=== PATIENT | female | born 1995 | race Caucasian/White ===

== ENCOUNTER 2019-11-30 20:18 | Emergency (ER) | payer SELFPAY ==
--- NOTE | 2019-11-30 21:20 | EDPHYS ---
Physician Documentation [facility] Name: Miranda Sanders Age: 24 yrs Sex: Female : 1995 Arrival Date: 11/30/2019 Time: 20:21 Bed 11 Private MD: ED Physician Luisito Trinidad HPI: 11/29 21:17 This 24 yrs old Female presents to ER via Ambulatory with complaints of Ear jr8 Pain. 21:17 The patient presents with pain. The complaints affect the right ear. Onset: The jr8 symptoms/episode began/occurred acutely, 2 day(s) ago. Modifying factors: The symptoms are alleviated by nothing, the symptoms are aggravated by nothing. Associated signs and symptoms: The patient has no apparent associated signs or symptoms. Severity of symptoms: At their worst the symptoms were moderate in the emergency department the symptoms are unchanged. The patient has not experienced similar symptoms in the past. The patient has not recently seen a physician. 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 - Social history:: Smoking status: Patient denies any tobacco usage or history of. ROS: 21:17 Eyes: Negative for injury, pain, redness, and discharge, Neck: Negative for injury, jr8 pain, and swelling, Cardiovascular: Negative for chest pain, palpitations, and edema, Respiratory: Negative for shortness of breath, cough, wheezing, and pleuritic chest pain, Abdomen/GI: Negative for abdominal pain, nausea, vomiting, diarrhea, and constipation, Back: Negative for injury and pain, MS/Extremity: Negative for injury and deformity, Skin: Negative for injury, rash, and discoloration, Neuro: Negative for headache, weakness, numbness, tingling, and seizure. 21:17 ENT: Positive for ear pain. Exam: 21:17 Head/Face: Normocephalic, atraumatic. Eyes: Pupils equal round and reactive to light, jr8 extra-ocular motions intact. Lids and lashes normal. Conjunctiva and sclera are non-icteric and not injected. Cornea within normal limits. Periorbital areas with no swelling, redness, or edema. Neck: Trachea midline, no thyromegaly or masses palpated, and no cervical lymphadenopathy. Supple, full range of motion without nuchal rigidity, or vertebral point tenderness. No Meningismus. Cardiovascular: Regular rate and rhythm with a normal S1 and S2. No gallops, murmurs, or rubs. Normal PMI, no JVD. No pulse deficits. Respiratory: Lungs have equal breath sounds bilaterally, clear to auscultation and percussion. No rales, rhonchi or wheezes noted. No increased work of breathing, no retractions or nasal flaring. Skin: Warm, dry with normal turgor. Normal color with no rashes, no lesions, and no evidence of cellulitis. Neuro: Awake and alert, GCS 15, oriented to person, place, time, and situation. Cranial nerves II-XII grossly intact. Motor strength 5/5 in all extremities. Sensory grossly intact. Cerebellar exam normal. Normal gait. 21:17 ENT: External ear(s): are unremarkable, Ear canal(s): are normal, TM's: bulging, on the right, dullness, on the right, erythema, that is moderate, on the right, Examination of the other ear shows no obvious abnormality, Nose: is normal, Mouth: is normal, Posterior pharynx: is normal. Vital Signs: 20:38 BP 114 / 74; Pulse 99; Resp 16; Temp 98.6; Pulse Ox 100% on R/A; Weight 38.56 kg; iw Height 5 ft. 2 in. (157.48 cm); Pain 5/10; 21:30 BP 112 / 72; Pulse 89; Resp 16; Temp 98.6; Pulse Ox 100% on R/A; sg 20:38 Body Mass Index 15.55 (38.56 kg, 157.48 cm) iw MDM: 21:17 Patient medically screened. jr8 21:17 Data reviewed: vital signs, nurses notes, and as a result, I will discharge patient. jr8 Data interpreted: Pulse oximetry: on room air is 100 %. Interpretation: normal. Counseling: I had a detailed discussion with the patient and/or guardian regarding: the historical points, exam findings, and any diagnostic results supporting the discharge/admit diagnosis, the need for outpatient follow up, a family practitioner, to return to the emergency department if symptoms worsen or persist or if there are any questions or concerns that arise at home. Administered Medications: No medications were administered Disposition: 11/30 00:03 Co-signature as Attending Physician, Luisito Trinidad MD I agree with the assessment and tw4 plan of care. Disposition: 11/30/19 21:18 Discharged to Home. Impression: Acute suppurative otitis media. - Condition is Stable. - Discharge Instructions: Otitis Media, Adult. - Prescriptions for Amoxicillin 875 mg Oral Tablet - take 1 tablet by ORAL route every 12 hours for 10 days; 20 tablet. - Medication Reconciliation Form, Thank You Letter, Antibiotic Education, Prescription Opioid Use form. - Follow up: Private Physician; When: As needed; Reason: Recheck today's complaints, Continuance of care, Re-evaluation by your physician. - Problem is new. - Symptoms are unchanged. Signatures: Virgil Delaney RN RN sg Williams, Irene, RN RN iw Roszak, Josh, PA PA jr8 Luisito Trinidad MD MD tw4 Corrections: (The following items were deleted from the chart) 11/29 21:39 21:18 11/30/2019 21:18 Discharged to Home. Impression: Acute suppurative otitis media. sg Condition is Stable. Forms are Medication Reconciliation Form, Thank You Letter, Antibiotic Education, Prescription Opioid Use. Follow up: Private Physician; When: As needed; Reason: Recheck today's complaints, Continuance of care, Re-evaluation by your physician. Problem is new. Symptoms are unchanged. jr8
--- NOTE | 2019-11-30 21:20 | ER ---
Nurse's Notes [facility] Name: Miranda Sanders Age: 24 yrs Sex: Female : 1995 Arrival Date: 11/30/2019 Time: 20:21 Bed 11 Private MD: Diagnosis: Acute suppurative otitis media Presentation: 11/29 20:38 Chief complaint: Patient states: right ear pain X 3 -4 days. Coronavirus screen: iw Proceed with normal triage. Patient denies a cough. Patient denies shortness of breath or difficulty breathing. Patient denies measured and/or subjective temperature greater than 100.4F prior to today's visit. Patient denies travel on a cruise ship or to a country the [facility] currently lists as an affected area. Patient denies contact with known and/or suspected case of COVID-19. Ebola Screen: Patient negative for fever greater than or equal to 101.5 degrees Fahrenheit, and additional compatible Ebola Virus Disease symptoms Patient denies exposure to infectious person. Patient denies travel to an Ebola-affected area in the 21 days before illness onset. No symptoms or risks identified at this time. Initial Sepsis Screen: Does the patient meet any 2 criteria? No. Patient's initial sepsis screen is negative. Does the patient have a suspected source of infection? No. Patient's initial sepsis screen is negative. Risk Assessment: Do you want to hurt yourself or someone else? Patient reports no desire to harm self or others. Onset of symptoms was November 26, 2019. 20:38 Method Of Arrival: Ambulatory 20:38 Acuity: FIDELIA 4 iw COMPUTING ARCHITECT: 20:40 LMP 11/25/2019 iw Historical: - Allergies: 20:39 No Known Allergies; sg - Home Meds: 20:40 None [Active]; iw - PMHx: 20:40 ptsd; Depression; iw - PSHx: 20:39 None; sg - Immunization history:: Adult Immunizations up to date. - Social history:: Smoking status: Patient denies any tobacco usage or history of. Screenin:00 Abuse screen: Denies threats or abuse. Denies injuries from another. Nutritional sg screening: No deficits noted. Tuberculosis screening: No symptoms or risk factors identified. Never had TB. Fall Risk None identified. Assessment: 21:00 General: Appears in no apparent distress. well groomed, well developed, well nourished, sg Behavior is calm, cooperative, appropriate for age. Pain: Complains of pain in right ear Quality of pain is described as aching, throbbing. Neuro: Level of Consciousness is awake, alert, obeys commands, Oriented to person, place, time, Steam Pan Sponger are equal bilaterally Speech is normal. Cardiovascular: Capillary refill is brisk in bilateral fingers Patient's skin is warm and dry. Chest pain is denied. Respiratory: Airway is patent Respiratory effort is even, unlabored, Respiratory pattern is regular, symmetrical. GI: No signs and/or symptoms were reported involving the gastrointestinal system. : No signs and/or symptoms were reported regarding the genitourinary system. EENT: Reports pain in right ear. Derm: Skin is pink, warm \T\ dry. Musculoskeletal: Circulation, motion, and sensation intact. Range of motion: intact in all extremities. Vital Signs: 20:38 BP 114 / 74; Pulse 99; Resp 16; Temp 98.6; Pulse Ox 100% on R/A; Weight 38.56 kg; iw Height 5 ft. 2 in. (157.48 cm); Pain 5/10; 21:30 BP 112 / 72; Pulse 89; Resp 16; Temp 98.6; Pulse Ox 100% on R/A; sg 20:38 Body Mass Index 15.55 (38.56 kg, 157.48 cm) iw ED Course: 20:21 Patient arrived in ED. cl3 20:39 Triage completed. iw 20:40 Arm band placed on. iw 20:41 Virgil Delaney, RN is Primary Nurse. sg 20:43 Ruben Houston PA is PHCP. jr8 20:43 Luisito Trinidad MD is Attending Physician. jr8 21:00 Patient has correct armband on for positive identification. Bed in low position. Call sg light in reach. Side rails up X2. Pulse ox on. NIBP on. 21:30 No provider procedures requiring assistance completed. Patient did not have IV access sg during this emergency room visit. Administered Medications: No medications were administered Outcome: 21:18 Discharge ordered by . jr8 21:30 Discharged to home ambulatory. sg 21:30 Condition: good 21:30 Discharge instructions given to patient, Instructed on discharge instructions, follow up and referral plans. medication usage, safety practices, Demonstrated understanding of instructions, follow-up care, medications, Prescriptions given X 2. 21:39 Patient left the ED. sg Signatures: Virgil Delaney RN RN sg Williams, Irene, RN RN iw Roszak, Josh, PA PA jr8 Sunita Ritchie cl3
[2019-11-30 21:45] VITALS: BP 114/74; TEMP 98.6; O2SAT 100
== END 2019-11-30 21:39 | disposition home or self-care (01) ==
LOC: ER 20:18
DX: H66.001 Acute suppurative otitis media without spontaneous rupture of ear drum, right ear (principal)
CPT/HCPCS: 99283

== ENCOUNTER 2021-06-22 01:23 | Emergency (ER) | payer OTHER, SELFPAY ==
--- OUTSIDE RECORDS SUMMARY | 2021-06-22 01:28 | XMS REPORT | Continuity of Care Document ---
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 Univers 10:00:00 10:00:00 [id number] ity of [facility] 2020-05-02 2020-05-02 Outpatient R [facility] [id number] Univers 10:00:00 10:00:00 ity of [facility] 2020-05-01 2020-05-01 Outpatient R [facility] [id number] Univers 14:00:00 14:00:00 [id number] ity of [facility] 2020-05-01 2020-05-01 Outpatient R [facility] [id number] Univers 14:00:00 14:00:00 ity of [facility] 2020-04-17 2020-04-17 [facility] [id number] Univers 12:45:00 12:45:00 RADHA ity of [facility] 2020-04-17 2020-04-17 [facility] [id number] Univers 12:45:00 12:45:[address] [facility] 2020-04-10 2020-04-10 [facility] [id number] Univers 09:45:00 09:45:00 RADHA [id number] ity of [facility] 2020-04-10 2020-04-10 [facility] [id number] Univers 09:45:00 09:45:[address] [facility] 2020-04-05 2020-04-05 Outpatient R BISMARK [facility] [id number] Univers 14:15:00 14:15:[address] RADHA [id number] [address]y [facility] 2020-04-05 2020-04-05 Outpatient R BISMARK [facility] [id number] Univers 14:15:00 14:15:[address] [facility] 2020 2020 Outpatient R BISMARK [facility] [id number] Univers 07:45:00 07:45:[address] RADHA [id number] [address]y [facility] 2020-03-29 2020-03-29 Outpatient R CINDICHRIS, [facility] [id number] Univers 13:15:00 13:15:00 MALAIKA [id number] ity o f [facility] 2020-03-29 2020-03-29 Outpatient R AKINANITACHRIS, [facility] [id number] Univers 13:15:00 13:15:00 MALAIKA ity o f [facility] 2019-11-30 2019-11-30 Outpatient R LUIS [facility] [id number] Univers 14:45:00 14:45:00 BOB [id number] ity o f [facility] 2019-11-30 2019-11-30 Outpatient R LUIS [facility] [id number] Univers 14:45:00 14:45:00 BOB ity o f [facility] 2019-11-10 2019-11-10 Outpatient R [facility] [id number] Univers 08:00:00 08:00:[id number] [facility] 2019-11-10 2019-11-10 Outpatient R [facility] [id number] Univers 08:00:00 08:00:00 ity of [facility] 2019-11-09 2019-11-09 Outpatient R [facility] [id number] Univers 08:45:00 08:45:[id number] [facility] 2019-11-09 2019-11-09 Outpatient R SMITH, [facility] [id number] Univers 08:15:00 08:15:00 BOB portillo o f [facility] Results Test Description Test Time Test Comments Results Result Comments Source POCT URINALYSIS W/O SPECIFIC GRAVITY 2021-06-11 21:34:00 Test Item Value Reference Range Interpretation Comme nts POCT PH U (test code = 3254) . 5-8 POCT U LEUK EST (test code = 3263) . Negative - Negative POCT U NIT (test code = 3262) . Negative - Negative POCT U PROT (test code = 3259) Trace Negative - Negative POCT U GLU (test code = 3256) Neg Negative - Negative POCT U KETONE (test code = 3258) . Negative - Negative POCT U BLD (test code = 3257) . Negative - Negative [facility] SPECIFIC [id number] 18:18:00 Test Item Value Reference Range Interpretation Comments POCT PH U (test code = 3254) 7 mg/dl 5-8 POCT U LEUK EST (test code = trace Negative - Negative 3263) POCT U NIT (test code = 3262) negative Negative - Negative POCT U PROT (test code = 3259) trace Negative - Negative POCT U GLU (test code = 3256) Negative - Negative POCT U KETONE (test code = 3258) negative Negative - Negative POCT U BLD (test code = 3257) negative Negative - Negative [facility] W SPECIFIC [id number] 19:49:00 Test Item Value Reference Range Interpretation Comments POCT U SP GRAV (test code = . 1.005-1.025 3255) POCT PH U (test code = 3254) 5 mg/dl 5-8 POCT U LEUK EST (test code = negative Negative - Negative 3263) POCT U NIT (test code = 3262) negative Negative - Negative POCT U PROT (test code = 3259) trace Negative - Negative POCT U GLU (test code = 3256) negative Negative - Negative POCT U KETONE (test code = 3258) negative Negative - Negative POCT U UROBILI (test code = . 0.2-1 3260) POCT U BILI (test code = 3261) . Negative - Negative POCT U BLD (test code = 3257) negative Negative - Negative POCT U COLOR (test code = 3266) POCT U APPEAR (test code = 3267) [facility] [id number] 19:47:00 Test Item Value Reference Range Interpretation Comments POCT PREG (test code = 1605) Positive On board controls acceptable with C Yes Line (test code = 3574) POCT PREG LOT # (test code = 3575) POCT PREG TEST DATE (test code = 3576) [facility]
--- NOTE | 2021-06-22 02:59 | ER ---
Nurse's Notes [facility] Name: Miranda Sanders Age: 26 yrs Sex: Female : 1995 Arrival Date: 06/22/2021 Time: 01: Bed Waiting Private MD: Diagnosis: Presentation: 06/22 01:32 Chief complaint: Patient states: pt fell and hurt rt side and back. Coronavirus screen: da3 Vaccine status: Patient reports being unvaccinated. Ebola Screen: No symptoms or risks identified at this time. Initial Sepsis Screen: Does the patient meet any 2 criteria? No. Patient's initial sepsis screen is negative. Risk Assessment: Do you want to hurt yourself or someone else? Patient reports no desire to harm self or others. Onset of symptoms was June 22, 2021. 01:32 Method Of Arrival: Ambulatory da3 01:32 Acuity: FIDELIA 3 da3 Triage Assessment: 01:32 General: Appears in no apparent distress. comfortable, Behavior is calm, cooperative. da3 Pain: Complains of pain in back and abdomen Pain currently is 9 out of 10 on a pain scale. 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 - Social history:: Smoking status: Patient reports the use of cigarette tobacco products, smokes one-half pack cigarettes per day. Vital Signs: 01:32 BP 111 / 75; Pulse 103; Resp 20; Temp 98.1; Pulse Ox 100% on R/A; Weight 42.96 kg; da3 Height 5 ft. 2 in. (157.48 cm); 01:32 Body Mass Index 17.32 (42.96 kg, 157.48 cm) da3 ED Course: 01:26 Patient arrived in ED. bp1 01:38 Triage completed. da3 02:15 Freddy Brock RN is Primary Nurse. as6 02:58 Patient's name was called from [facility]. No response. Unable to locate patient. Will bb disposition as left without being seen by a provider. Administered Medications: No medications were administered Outcome: 02:59 Patient left the ED. bb Signatures: Rosalinda Chau RN RN bb Sangita Meza David, RN RN da3 Freddy Brock, RN RN as6
[2021-06-22 03:12] VITALS: BP 111/75; TEMP 98.1; O2SAT 100
== END 2021-06-22 02:59 | disposition left against medical advice (07) ==
LOC: ER 01:23
DX: Z53.21 Procedure and treatment not carried out due to patient leaving prior to being seen by health care provider (principal)
CPT/HCPCS: 99281

== ENCOUNTER 2024-04-30 09:37 | Emergency (ER) | payer OTHER, SELFPAY ==
[2024-04-30 10:18] LABS: Absolute Lymphocytes (CBC) 0.5 K/uL (0.7-4.9); Absolute Monocytes 0.8 K/uL (0.1-1.3); Absolute Neutrophil 6.8 K/uL (1.8-8.0); Basophils % 0.3 % (0-1.3); Hematocrit 40.7 % (36.0-45.0); Hemoglobin 13.9 g/dL (12.0-15.0); MCH 30.3 pg (27.0-35.0); MCHC 34.2 g/dL (32.0-36.0); MCV 88.6 fL (80-100); MPV 8.4 fL (7.6-11.3); Monocytes % 9.9 % (3.3-12.3); Neutrophils % 83.8 % (41.7-73.7); Nucleated Red Blood Cells % 0.1 % (0-0); Platelets 218 thou/uL (152-406); RBC Red Blood Cell Count 4.59 M/uL (3.86-4.86); Red Cell Distribution Width 12.9 % (12.1-15.2)
[2024-04-30 10:35] LABS: Albumin 4.4 g/dL (3.4-5.0); Albumin/Globulin Ratio 1.1 (1.1-1.8); Anion Gap 9.2 mEq/L (5.0-15.0); Bilirubin Total 2.2 mg/dL (0.2-1.0); Potassium 3.2 mEq/L (3.5-5.1); Protein, Total 8.4 g/dL (6.4-8.2)
[2024-04-30 10:58] LABS: Specific Gravity 1.008 (1.005-1.030)
[2024-04-30 10:59] LABS: Specific Gravity 1.008 (1.005-1.030); Sqamous Epithelial <5 /HPF (None Seen); Urine Bacteria None Seen /HPF (<20); Urine Bilirubin NEGATIVE (Negative); Urine Blood Negative (Negative); Urine Clarity Turbid (Clear); Urine Color Light-Yellow (Yellow); Urine Culture Reflex Order NOT NEEDED; Urine Glucose NEGATIVE (Negative); Urine Ketones TRACE (Negative); Urine Microscopic Reflex YN ORDER UMIC; Urine Nitrite NEGATIVE (Negative); Urine Protein NEGATIVE (Negative); Urine RBC <5 /HPF (None Seen); Urine Urobilinogen Normal (Normal); Urine WBC <5 /HPF (<5)
[2024-04-30 11:07] LABS: SARS-CoV-2 Antigen CONTROL BLUE LINE VIS/BG OK; SARS-CoV-2 Antigen Rapid Res Negative (Negative)
--- NOTE | 2024-04-30 12:07 | RAD REPORT ---
EXAMINATION: CT ABDOMEN AND PELVIS WITH CONTRAST CLINICAL INDICATION: Abdominal pain TECHNIQUE: CT abdomen and pelvis was performed, after the administration of 100 cc Isovue-300.. Sagit lukas and coronal reconstructions were obtained. One or more of the following dose reduction techniques were used: Automated exposure control, adjustment of the mA and kV according to patient si ze, and iterative reconstruction. Unless otherwise specified, incidental findings do not require dedicated imaging follow-up. [id number]. Oral contrast was not given which limits evaluation of bowel and appendix. COMPARISON: none FINDINGS: Liver, pancreas, adrenals and right kidney appear unremarkable. Spleen is upper limits normal size Several low-density areas within the left kidney. They reach the periphery. This is compatible with p yelonephritis. No evidence of diverticulitis. 3.7 cm right ovarian cyst without significant free fluid. 2.8 cm left ovarian cyst. No follow-up imag ing recommended. : IMPRESSION: Moderate left pyelonephritis
[2024-04-30] MEDS ORDERED: CEFTRIAXONE 1000 MG/VIAL ONE ×2 (12:25→12:40)
[2024-04-30] MEDS ORDERED: LIDOCAINE 1% MPF 5 ML VIAL ONE (12:40)
--- NOTE | 2024-04-30 12:43 | ER ---
Nurse's Notes [facility] Name: Miranda Sanders Age: 29 yrs Sex: Female : 1995 Arrival Date: 04/30/2024 Time: 09:37 Bed 19 Private MD: Diagnosis: Pyelonephritis acute Presentation: 04/30 09:53 Chief complaint: Patient states: has had burning with urination and fever, now has left iw back pain. Coronavirus screen:. Ebola Screen: No symptoms or risks identified at this time. Initial Sepsis Screen: Does the patient meet any 2 criteria? HR > 90 bpm. Does the patient have a suspected source of infection?. Risk Assessment: Do you want to hurt yourself or someone else? Patient reports no desire to harm self or others. 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 - Infectious Disease History:: Denies. - Social history:: Smoking status: Reported history of juuling and/or vaping. Screenin:[facility] ED Fall Risk Assessment (Adult) History of falling in the last 3 months, rs5 including since admission No falls in past 3 months (0 pts) Confusion or Disorientation No (0 pts) Intoxicated or Sedated No (0 pts) Impaired Gait No (0 pts) Mobility Assist Device Used No (0 pt) Altered Elimination No (0 pt) Score/Fall Risk Level 0 - 2 = Low Risk Oriented to surroundings, Maintained a safe environment. Abuse screen: Denies threats or abuse. Nutritional screening: No deficits noted. Tuberculosis screening: No symptoms or risk factors identified. Assessment: 09:50 General: Appears in no apparent distress. uncomfortable, Behavior is calm, cooperative. rs5 Pain: Complains of pain in left sided back pain Pain currently is 3 out of 10 on a pain scale. Quality of pain is described as aching, Is continuous. Neuro: Level of Consciousness is awake, alert, obeys commands, Oriented to person, place, time, situation. Cardiovascular: Patient's skin is warm and dry. Respiratory: Airway is patent Respiratory effort is even, unlabored, Respiratory pattern is regular, symmetrical. GI: Abdomen is round non-distended, Abd is soft and non tender X 4 quads. : Reports burning with urination. 09:50 EENT: No signs and/or symptoms were reported regarding the EENT system. Derm: Skin is rs5 intact, Skin is pink, warm \T\ dry. Musculoskeletal: Range of motion: intact in all extremities. 11:01 Reassessment: Patient and/or family updated on plan of care and expected duration. Pain rs5 level reassessed. Patient is alert, oriented x 3, equal unlabored respirations, skin warm/dry/pink. 12:10 Reassessment: Patient and/or family updated on plan of care and expected duration. Pain rs5 level reassessed. Patient is alert, oriented x 3, equal unlabored respirations, skin warm/dry/pink. 12:50 Reassessment: No changes from previously documented assessment. rs5 Vital Signs: 09:53 BP 109 / 70; Pulse 94; Resp 18; Temp 98.8; Pulse Ox 100% on R/A; Weight 49.9 kg; Height iw 5 ft. 3 in. ; Pain 5/10; 12:50 BP 112 / 74; Pulse 77; Resp 17; Pulse Ox 99% on R/A; rs5 09:53 Body Mass Index 19.49 (49.90 kg, 160.02 cm) iw 09:53 Pain Scale: Adult iw ED Course: 09:40 Patient arrived in ED. mr 09:41 Maddie Gautam PA-C is PHCP. sb4 09:41 Alan Burdick MD is Attending Physician. sb4 09:50 Patient has correct armband on for positive identification. Placed in gown. Bed in low rs5 position. Call light in reach. Side rails up X2. 09:50 No provider procedures requiring assistance completed. rs5 09:50 Inserted saline lock: 20 gauge in right antecubital area, using aseptic technique. rs5 Blood collected. Flushed with 10 mL NS. 09:52 Puneet Garzon RN is Primary Nurse. rs5 09:54 Triage completed. iw 09:55 Arm band placed on. iw 11:13 CT Abd/Pelvis - IV Contrast Only In Process Unspecified. EDMS 13:00 IV discontinued, intact, bleeding controlled, No redness/swelling at site. Pressure rs5 dressing applied. Administered Medications: 12:10 Drug: Rocephin IV 1 grams IV at calculated rate once; Given slow IV push per pharmacy rs5 instructions Route: IV; Rate: calculated rate; Site: right antecubital; 12:30 Follow up: Response: No adverse reaction rs5 Medication: 11:29 VIS not applicable for this client. rs5 Outcome: 12:42 Discharge ordered by . sb4 13:00 Patient left the ED. rs5 13:00 Discharged to home ambulatory, rs5 13:00 Condition: stable rs5 13:00 Discharge instructions given to patient, family, Instructed on discharge instructions, follow up and referral plans. medication usage, Demonstrated understanding of instructions, follow-up care, medications, Prescriptions given X 1, Signatures: Dispatcher [employer] EDVT Tee Rebeca, Reg Reg mr Meche Abel, RN RN iw Maddie Gautam, PAPriscillaC PA-C sb4 Puneet Garzon, RN RN rs5 Corrections: (The following items were deleted from the chart) 11:30 09:50 Pain: Complains of pain in left sided back pain Pain currently is 8 out of 10 on rs5 a pain scale. Quality of pain is described as aching, Is continuous, rs5 19:33 17:01 BP 112 / 74; Pulse 77bpm; Resp 17bpm; Pulse Ox 99% RA; rs5 rs5
--- NOTE | 2024-04-30 12:43 | EDPHYS ---
Physician Documentation [facility] Name: Miranda Sanders Age: 29 yrs Sex: Female : 1995 Arrival Date: 04/30/2024 Time: 09:37 Bed 19 Private MD: CHANG Physician Alan Burdick HPI: 04/30 09:56 This 29 yrs old Female presents to ER via Ambulatory with complaints of Fever, Back sb4 Pain. 09:56 Patient reports burning with urination that began a few days ago. She states that she sb4 was drinking a lot of water and taking Azo. States that her urinary symptoms have resolved but now she is having left low back pain, fever, nausea and vomiting. She denies any blood in her urine. Denies any history of kidney disease or infections. 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 - Infectious Disease History:: Denies. - Social history:: Smoking status: Reported history of juuling and/or vaping. ROS: 09:56 Respiratory: Negative for shortness of breath, cough, wheezing, and pleuritic chest sb4 pain, 09:56 Constitutional: Positive for fever, 09:56 Abdomen/GI: Positive for abdominal pain, nausea and vomiting, 09:56 Back: Positive for flank pain, on the left, 09:56 : Positive for burning with urination, 09:56 All other systems are negative, Exam: 09:59 Constitutional: This is a well developed, well nourished patient who is awake, alert, sb4 and in no acute distress. Head/Face: Normocephalic, atraumatic. Eyes: Extra-ocular motions intact. Periorbital areas with no swelling, redness, or edema. ENT: Mucous membranes moist. Cardiovascular: Regular rate and rhythm with a normal S1 and S2. Respiratory: Lungs have equal breath sounds bilaterally, clear to auscultation and percussion. No rales, rhonchi or wheezes noted. No increased work of breathing, no retractions or nasal flaring. Abdomen/GI: Soft, non-tender, no distension. Skin: Warm, dry with normal turgor. Normal color with no rashes, no lesions, and no evidence of cellulitis. 09:59 Back: CVA tenderness, is absent, Vital Signs: 09:53 BP 109 / 70; Pulse 94; Resp 18; Temp 98.8; Pulse Ox 100% on R/A; Weight 49.9 kg; Height iw 5 ft. 3 in. ; Pain 5/10; 12:50 BP 112 / 74; Pulse 77; Resp 17; Pulse Ox 99% on R/A; rs5 09:53 Body Mass Index 19.49 (49.90 kg, 160.02 cm) iw 09:53 Pain Scale: Adult iw MDM: 09:44 Medical Screening Exam initiated sb4 12:42 Data reviewed: vital signs, nurses notes, lab test result(s), radiologic studies, and sb4 as a result, I will discharge patient. Counseling: I had a detailed discussion with the patient and/or guardian regarding the historical points, exam findings, and any diagnostic results supporting the discharge/admit diagnosis, lab results, radiology results, to return to the emergency department if symptoms worsen or persist or if there are any questions or concerns that arise at home. 04/30 09:51 Order name: Blood Culture Adult (2) sb4 04/30 09:51 Order name: CBC with Diff; Complete Time: 10:19 sb4 04/30 09:51 Order name: CMP; Complete Time: 10:43 sb4 04/30 09:51 Order name: Lactate w/ 2H reflex if indic.; Complete Time: 12:21 sb4 04/30 09:51 Order name: Urinalysis w/ reflexes; Complete Time: 11:01 sb4 04/30 09:51 Order name: Test, Urine; Complete Time: 10:59 sb4 04/30 09:51 Order name: SARS RAPID; Complete Time: 11:08 sb4 04/30 09:51 Order name: Flu; Complete Time: 11:18 sb4 04/30 10:59 Order name: CT Abd/Pelvis - IV Contrast Only; Complete Time: 12:09 sb4 04/30 09:51 Order name: Cardiac monitoring; Complete Time: 10:52 sb4 04/30 09:51 Order name: IV Saline Lock - Large Bore; Complete Time: 10:52 sb4 04/30 09:51 Order name: Labs collected and sent; Complete Time: 10:52 sb4 04/30 09:51 Order name: O2 Per Protocol; Complete Time: 10:52 sb4 04/30 09:51 Order name: O2 Sat Monitoring; Complete Time: 10:52 sb4 04/30 09:51 Order name: Vital Signs; Complete Time: 10:52 sb4 Administered Medications: 12:10 Drug: Rocephin IV 1 grams IV at calculated rate once; Given slow IV push per pharmacy rs5 instructions Route: IV; Rate: calculated rate; Site: right antecubital; 12:30 Follow up: Response: No adverse reaction rs5 Disposition Summary: 04/30/24 12:42 Discharge Ordered Notes: Location: Home sb4 Problem: new sb4 Symptoms: have improved sb4 Condition: Stable sb4 Diagnosis - Pyelonephritis acute sb4 Followup: sb4 - With: Emergency Department - When: As needed - Reason: Fever > 102 F, Worsening of condition Discharge Instructions: - Discharge Summary Sheet sb4 - Pyelonephritis, Adult, [id number] sb4 Forms: - Antibiotic Education sb4 - Patient Portal Instructions sb4 - Leadership Thank You Letter sb4 Prescriptions: - Bactrim DS 800-160 mg Oral Tablet - take 1 tablet ORAL route every 12 hours for 7 days; 14 tablet; Refills: 0, sb4 Product Selection Permitted Signatures: Dispatcher [employer] Meche Vee, Maddie Summers RN, PA-C PATez sb4 Puneet Garzon RN RN rs5
[2024-04-30 16:23] VITALS: BP 109/70; TEMP 98.8; O2SAT 100
== END 2024-04-30 13:00 | disposition home or self-care (01) ==
LOC: ER 09:37
DX: N10 Acute pyelonephritis (principal)
CPT/HCPCS: 36415; 74177; 80053; 81001; 81025; 83605; 85025; 87040; 87804; 87811; 96374; 99284; J0696; J2001; Q9967

== ENCOUNTER 2024-06-15 09:50 | Emergency (ER) | payer SELFPAY ==
--- OUTSIDE RECORDS SUMMARY | 2024-06-15 09:55 | XMS REPORT | Continuity of Care Document ---
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 2023-07-12 21:39:[address] [facility] RAPID STREP SCREEN FOR GROUP A 2023-07-12 21:39:00 Bety Bazan [facility] RAPID INFLUENZA A/B 2023-07-12 21:39:00 Juan Antonio, Bety [facility] COVID-19 (ID NOW RAPID TESTING) 2023-07-12 21:39:00 Juan Antonio Bety [facility] CONSENT/REFUSAL FOR DIAGNOSIS AND TREATMENT 2023-07-12 21:19:57 Doctor Unassigned, [place] [facility] POCT MOLECULAR FLU 2023-06-07 22:10:00 Unknown, Attend ing [facility] PATIENT FINANCIAL POLICY 2023-06-07 21:35:57 Doctor Unassigned, [place] [facility] POCT MOLECULAR STREP 2023-05-04 17:48:00 Unknown, Erica kerr [facility] ASSIGNMENT OF BENEFITS 2023-05-04 17:23:24 Docto r Unassigned, [place] [facility] POCT SARS-COV-2 ANTIGEN (BINAX NOW) 2023-05-04 00:00:00 Jackelyn Aaron [facility] POCT TEST 2022-01-02 13:01:00 Michelle Smith [facility] CONSENT FOR CONTRACEPTION 2022-01-02 05:01:00 Doctor Unassigned, [place] [facility] Encounters Start Date/Time End Date/Time Encounter Type Admission Type Attending Clinicians Care Facility Care Department Encounter ID Source 2021-05-09 15:26:20 Emergency [facility] [id number] [facility] 2024-04-22 00:00:00 2024-05-28 18:24:56 Patient Secure Mony Lynch [facility] CATERING OPERATIONS MANAGER [facility] MATERNAL & CHILD [facility] 1.2.840.114 350.1.13.10 4.2.7.2.686 [id number] [facility] 2024-03-01 00:00:00 2024-04-02 18:20:06 Patient Secure Mony Lynch [facility] CATERING OPERATIONS MANAGER [facility] & CHILD [facility] 1.2.840.114 350.1.13.10 4.2.7.2.686 [id number] [facility] 2024-03-15 10:45:00 2024-03-15 11:59:22 Outpatient R MONY LEE [facility] [id number] [facility] 2024-03-15 10:45:00 2024-03-15 11:59:22 Office Visit Jesus Mony [facility] CATERING OPERATIONS MANAGER [facility] & CHILD [facility] 1.2.840.114 350.1.13.10 4.2.7.2.686 [id number] [facility] 2024-03-01 00:00:00 2024-03-01 15:16:51 Telephone Mony Lee [facility] CATERING OPERATIONS MANAGER [facility] 1.2.840.114 350.1.13.10 4.2.7.2.686 [id number] [facility] 2024-03-01 00:00:00 2024-03-01 10:26:40 Telephone Jesus Mony [facility] CATERING OPERATIONS MANAGER [facility] CHILD [facility] 1.2.840.114 350.1.13.10 4.2.7.2.686 [id number] [facility] 2024-03-01 09:30:00 2024-03-01 09:30:00 Outpatient R MONY LEE [facility] [id number] [facility] 2024-02-16 00:00:00 2024-02-17 13:47:21 Telephone Malaika Quiñones [facility] CATERING OPERATIONS MANAGER [facility] CHILD [facility] 1.2.840.114 350.1.13.10 4.2.7.2.686 [id number] [facility] 2023-10-06 13:40:00 2023-10-06 14:31:24 Outpatient R EMPERATRIZ KEY [facility] [id number] [facility] 2023-10-06 13:40:00 2023-10-06 14:31:24 Urgent Care Emperatriz Key Unknown, Attending [facility] 1.84.114 350.1.13.10 4.2.7.2.686 [id number] [facility] 2023-07-12 15:29:00 2023-07-12 17:12:00 Emergency X JUAN ANTONIO BETY [facility] ERT [id number] [facility] 2023-07-12 15:29:00 2023-07-12 17:12:00 Emergency Bety Bazan [facility] 1.84.114 350.1.13.10 4.2.7.2.686 [id number] [facility] 2023-06-07 15:40:00 2023-06-07 16:38:27 Outpatient R MARTINA JOSEPH [facility] [id number] [facility] 2023-06-07 15:40:00 2023-06-07 16:38:27 Urgent Care Martina Joseph Unknown, Attending [facility] OFF[facility] BU[facility] 1.84.114 350.1.13.10 4.2.7.2.686 [id number] [facility] 2023-06-07 00:00:00 2023-06-07 00:00:00 Orders Only Doctor Unassigned, [place] [facility] 1.114 350.1.13.10 4.2.7.2.686 [id number] [facility] 2023-05-04 12:30:00 2023-05-04 13:05:57 Outpatient R JACKELYN AARON [facility] [id number] [facility] 2023-05-04 12:30:00 2023-05-04 13:05:57 Urgent Care Jackelyn Aaron Unknown, Attending [facility] 1.2.114 350.1.13.10 4.2.7.2.686 [id number] [facility] 2023-05-04 00:00:00 2023-05-04 00:00:00 Orders Only Doctor Unassigned, [place] [facility] 1.2840.114 350.1.13.10 4.2.7.2.686 [id number] [facility] 2023-05-04 00:00:00 2023-05-04 00:00:00 Letter (Out) Jackelyn Aaron [facility] 1.114 350.1.13.10 4.2.7.2.686 [id number] [facility] 2023-01-23 08:23:45 2023-01-23 08:23:45 Outpatient SFA [id number] Fantasma Gutierrez Brannon 2023-01-16 00:00:00 2023-01-16 00:00:00 Case Management Rosalinda Brown 1.114 350.1.13.10 4.2.7.2.686 [id number] [facility] 2023-01-09 08:42:33 2023-01-09 08:42:33 Outpatient SFA SFA [id number] Fantasma Gutierrez Brannon 2022-12-19 08:54:20 2022-12-19 08:54:20 Outpatient SFA SFA [id number] Fantasma Gutierrez Brannon 2022-11-12 00:00:00 2022-11-12 00:00:00 Patient Secure Jazmyne Adames [facility] CATERING OPERATIONS MANAGER [facility] MATERNAL & CHILD [facility] 1..114 350.1.13.10 4.2.7.2.686 [id number] [facility] 2022-09-05 00:00:00 2022-09-05 00:00:00 Patient Secure Msg Doctor Unassigned, [place] [facility] 1.2.840.114 350.1.13.10 4.2.7.2.686 [id number] [facility] 2022-04-21 00:00:00 2022-04-21 00:00:00 Telephone Bob Smith [facility] CATERING OPERATIONS MANAGER [facility] & CHILD [facility] 1.2.840.114 350.1.13.10 4.2.7.2.686 [id number] [facility] 2022-01-23 00:00:00 2022-01-23 00:00:00 Patient Secure Msg Malaika Quiñones [facility] CATERING OPERATIONS MANAGER [facility] & CHILD [facility] 1.2.840.114 350.1.13.10 4.2.7.2.686 [id number] [facility] 2022-01-02 07:45:00 2022-01-02 09:09:31 Office Visit Bob Smith [facility] CATERING OPERATIONS MANAGER [facility] 1.2.840.114 350.1.13.10 4.2.7.2.686 [id number] [facility] 2022-01-02 07:45:00 2022-01-02 09:09:31 Outpatient R BOB SMITH [facility] [id number] [facility] 2022-01-02 07:45:00 2022-01-02 09:09:31 Outpatient BOB KIRKLAND [facility] [id number] [facility] 2022-01-02 07:45:00 2022-01-02 07:45:00 Outpatient R BOB SMITH [facility] [id number] [facility] 2022-01-02 00:00:00 2022-01-02 00:00:00 Orders Only Doctor Unassigned, [place] [facility] 1.2.840.114 350.1.13.10 4.2.7.2.686 [id number] [facility] 2022-01-01 08:45:00 2022-01-01 08:45:00 Outpatient BOB KIRKLAND [facility] [id number] [facility] 2022-01-01 08:45:00 2022-01-01 08:45:00 Outpatient R SMITHEVIENINOSKA [facility] [id number] [facility] 2022-01-01 08:45:00 2022-01-01 08:45:00 Outpatient R SMITHEVIENINOSKA [facility] [id number] [facility] 2021-12-16 00:00:00 2021-12-16 00:00:00 [facility] 1..840.114 350.1.13.10 4.2.7.2.686 [id number] [facility] 2021-12-11 10:45:00 2021-12-11 10:45:00 Routine Visit Malaika Quiñones [facility] CATERING OPERATIONS MANAGER [facility] MATERNAL & [facility] 1..840.114 350.1.13.10 4.2.7.2.686 [id number] [facility] 2021-12-11 10:45:00 2021-12-11 10:29:02 Outpatient R MALAIKA QUIÑONES [facility] [id number] [facility] 2021-12-11 10:45:00 2021-12-11 10:29:02 Outpatient R MALAIKA QUIÑONES [facility] [id number] [facility] 2021-12-03 14:30:00 2021-12-03 14:30:00 Outpatient P [facility] [id number] [facility] 2021-11-26 14:30:00 2021-11-26 14:30:00 Outpatient P [facility] [id number] [facility] 2021-11-19 20:59:00 2021-11-22 18:38:00 Inpatient P MARLENI GOETZ [facility] [id number] [facility] 2021-11-19 20:59:00 2021-11-22 18:38:00 Hospital Encounter Marleni Goetz [facility]uvbo[facility] 1.0.114 350.1.13.10 4.2.7.2.686 [id number] [facility] 2021-11-20 17:16:00 2021-11-21 03:48:00 Anesthesia Event Felipe Silva, Ashley [facility] 1..114 350.1.13.10 4.2.7.2.686 [id number] [facility] 2021-11-19 15:45:00 2021-11-19 16:16:52 Outpatient R LEA ESCOBEDOHA [facility] [id number] [facility] 2021-11-19 15:45:00 2021-11-19 16:16:52 [facility]..114 350.1.13.10 4.2.7.2.686 [id number] [facility] 2021-11-19 14:30:00 2021-11-19 15:23:39 Rn Renal Visit 5, [facility] 1.2.114 350.1.13.10 4.2.7.2.686 [id number] [facility] 2021-11-19 14:30:00 2021-11-19 15:23:39 Outpatient P ROACH, FREDY [facility] [id number] [facility] 2021-11-19 14:30:00 2021-11-19 15:23:39 Outpatient P FREDY ROACH [facility] [id number] [facility] 2021-11-18 00:00:00 2021-11-18 00:00:00 Patient Secure Msg Doctor Unassigned, [place] [facility] 1.840.114 350.1.13.10 4.2.7.2.686 [id number] [facility] 2021-11-15 14:45:00 2021-11-15 14:45:00 Outpatient JAZMYNE TOVAR EMILY [facility] [id number] [facility] 2021-11-14 00:00:00 2021-11-14 00:00:00 Malaika Dave [facility] CATERING OPERATIONS MANAGER [facility] MATERNAL & [facility] 1..840.114 350.1.13.10 4.2.7.2.686 [id number] [facility] 2021-11-12 14:30:00 2021-11-12 14:30:00 Outpatient ALAN PATEL [facility] [id number] [facility] 2021-11-08 14:45:00 2021-11-08 14:45:00 Outpatient ALTHEA UGARTE [facility] [id number] [facility] 2021-11-05 15:45:00 2021-11-05 16:01:10 Routine Visit Stewart Escobedo [facility] .840.114 350.1.13.10 4.2.7.2.686 [id number] [facility] 2021-11-05 14:30:00 2021-11-05 14:56:31 Outpatient P YONG DAVIS SHANNON [facility] [id number] [facility] 2021-11-05 14:30:00 2021-11-05 14:56:31 Rn Renal Visit 1, [facility] Us Room Yong Davsi [facility] 1.2840.114 350.1.13.10 4.2.7.2.686 [id number] [facility] 2021-10-29 14:30:00 2021-10-29 15:08:22 Rn Renal Visit 1, [facility] Us Room Althea Westbrook Antonio F [facility] 1.0.114 350.1.13.10 4.2.7.2.686 [id number] [facility] 2021-10-29 13:30:00 2021-10-29 14:06:04 Outpatient ALTHEA UGARTE [facility] [id number] [facility] 2021-10-29 13:30:00 2021-10-29 14:06:04 Routine Visit Pietro Althea [facility] 1.0.114 350.1.13.10 4.2.7.2.686 [id number] [facility] 2021-10-28 00:00:00 2021-10-28 00:00:00 Patient Secure Msg Jazmyne Sofia [facility] CATERING OPERATIONS MANAGER [facility] MATERNAL & CHILD [facility] 1.0.114 350.1.13.10 4.2.7.2.686 [id number] [facility] 2021-10-27 00:00:00 2021-10-27 00:00:00 Malaika Dave [facility] CATERING OPERATIONS MANAGER [facility] MATERNAL & CHILD [facility] 1.2840.114 350.1.13.10 4.2.7.2.686 [id number] [facility] 2021-10-25 13:45:00 2021-10-25 13:45:00 Outpatient R ALTHEA WESTBROOK [facility] [id number] [facility] 2021-10-22 13:30:00 2021-10-22 14:36:16 Routine Visit Althea Westbrook [facility] 1..840.114 350.1.13.10 4.2.7.2.686 [id number] [facility] 2021-10-22 14:30:00 2021-10-22 14:30:00 Outpatient P BIJAL RAPP [facility] [id number] [facility] 2021-10-14 14:00:00 2021-10-14 14:00:00 Outpatient P [facility] [id number] [facility] 2021-10-08 14:45:00 2021-10-08 14:45:00 Outpatient R MALAIKA QUIÑONES [facility] [id number] [facility] 2021-10-08 00:00:00 2021-10-08 00:00:00 Abstract Malaika Quiñones [facility] CATERING OPERATIONS MANAGER [facility] & CHILD [facility] 1..840.114 350.1.13.10 4.2.7.2.686 [id number] [facility] 2021-10-08 00:00:00 2021-10-08 00:00:00 Abstract Malaika Quiñones [facility] CATERING OPERATIONS MANAGER [facility] & CHILD [facility] 1..840.114 350.1.13.10 4.2.7.2.686 [id number] [facility] 2021-10-07 13:00:00 2021-10-07 13:00:00 Outpatient P [facility] [id number] [facility] 2021-10-06 00:00:00 2021-10-06 00:00:00 Refill Malaika Quiñones [facility] CATERING OPERATIONS MANAGER [facility] & CHILD [facility] 1..840.114 350.1.13.10 4.2.7.2.686 [id number] [facility] 2021-10-04 13:00:00 2021-10-04 15:29:27 Rn Renal Visit 5, [facility] 1.840.114 350.1.13.10 4.2.7.2.686 [id number] [facility] 2021-10-04 13:00:00 2021-10-04 13:00:00 Outpatient P MESFIN [facility] [id number] [facility] 2021-10-03 13:00:00 2021-10-03 13:00:00 Outpatient P MALAIKA QUIÑONES [facility] [id number] [facility] 2021-10-02 13:00:00 2021-10-02 13:00:00 Outpatient [facility] [facility] [id number] [facility] 2021-09-30 14:15:00 2021-09-30 14:15:00 Outpatient P JAZMYNE SOFIA [facility] [id number] [facility] 2021-09-26 14:00:00 2021-09-26 14:00:00 Outpatient R MALAIKA QUIÑONES [facility] [id number] [facility] 2021-09-23 14:15:00 2021-09-23 15:26:06 Rn Renal Visit 1, [facility] Us Room [facility] 1.840.114 350.1.13.10 4.2.7.2.686 [id number] [facility] 2021-09-23 14:15:00 2021-09-23 14:15:00 Outpatient R RAMÍREZ CARRILLO [facility] [id number] [facility] 2021-09-22 00:00:00 2021-09-22 00:00:00 Bob Casas [facility] CATERING OPERATIONS MANAGER [facility] MATERNAL & [facility] 1.840.114 350.1.13.10 4.2.7.2.686 [id number] [facility] 2021-09-22 00:00:00 2021-09-22 00:00:00 Aurea Sridevi Guzmán [facility] CATERING OPERATIONS MANAGER [facility] CHILD [facility] 1.840.114 350.1.13.10 4.2.7.2.686 [id number] 107 [id number] [facility] 2021-09-19 12:45:00 2021-09-19 12:45:00 Outpatient MALAIKA BRADLEY [facility] [id number] [facility] 2021-09-16 14:15:00 2021-09-16 15:14:33 Rn Renal Visit Ultrasound, Agata Edmondson [facility] CATERING OPERATIONS MANAGER [facility] 1..114 350.1.13.10 4.2.7.2.686 [id number] [facility] 2021-09-16 14:15:00 2021-09-16 14:15:00 Outpatient AGATA TOURE [facility] [id number] [facility] 2021-09-16 00:00:00 2021-09-16 00:00:00 Telephone Sridevi Guzmán [facility] CATERING OPERATIONS MANAGER [facility] MATERNAL & [facility] 1..114 350.1.13.10 4.2.7.2.686 [id number] 107 [id number] [facility] 2021-09-06 00:00:00 2021-09-06 00:00:00 Patient Secure Jazmyne Adames [facility] CATERING OPERATIONS MANAGER [facility] MATERNAL & [facility] 1.840.114 350.1.13.10 4.2.7.2.686 [id number] [facility] 2021-09-05 13:00:00 2021-09-05 14:15:51 Outpatient SRIDEVI BUSH [facility] [id number] [facility] 2021-09-05 13:00:00 2021-09-05 14:15:51 Routine Visit Risk, EileenRmchp-N p/High Sridevi Guzmán [facility] CATERING OPERATIONS MANAGER [facility] MATERNAL & [facility] 1..840.114 350.1.13.10 4.2.7.2.686 [id number] [facility] 2021-09-05 13:00:00 2021-09-05 13:00:00 Outpatient SRIDEVI BUSH [facility] [id number] [facility] 2021-08-22 00:00:00 2021-08-22 00:00:00 Orders Only Doctor Unassigned, [place] [facility] 1..840.114 350.1.13.10 4.2.7.2.686 [id number] [facility] 2021-08-20 10:45:00 2021-08-20 10:45:00 Outpatient MARIO ALBERTO ZAMBRANO [facility] [id number] [facility] 2021-08-15 13:45:00 2021-08-15 15:06:53 Outpatient SRIDEVI BUSH [facility] [id number] [facility] 2021-08-15 13:45:00 2021-08-15 15:06:53 Routine Visit Risk, Ang-Rmchp-N p/High Manny Guzmánen [facility] CATERING OPERATIONS MANAGER [facility] MATERNAL & [facility] ..840.114 350.1.13.10 4.2.7.2.686 [id number] [facility] 2021-08-12 13:00:00 2021-08-12 13:00:00 Outpatient BOB KIRKLAND [facility] [id number] [facility] 2021-08-08 15:30:00 2021-08-08 15:30:00 Outpatient R CINDICHRISLAYNEMALAIKA [facility] [id number] [facility] 2021-08-08 00:00:00 2021-08-08 00:00:00 Orders Only Doctor Unassigned, [place] [facility] 1.2.840.114 350.1.13.10 4.2.7.2.686 [id number] [facility] 2021-07-30 00:00:00 2021-07-30 00:00:00 Orders Only Doctor Unassigned, [place] [facility] 1.20.114 350.1.13.10 4.2.7.2.686 [id number] [facility] 2021-07-25 00:00:00 2021-07-25 00:00:00 Abstract Bob Smith [facility] CATERING OPERATIONS MANAGER [facility] & CHILD [facility] 1.0.114 350.1.13.10 4.2.7.2.686 [id number] [facility] 2021-07-22 10:45:00 2021-07-22 12:00:00 Rn Renal Visit Ultrasound, Marleni Vaughn Ikuvbogie [facility] CATERING OPERATIONS MANAGER [facility] MATERNAL & [facility] 1.0.114 350.1.13.10 4.2.7.2.686 [id number] [facility] 2021-07-22 10:45:00 2021-07-22 10:45:00 Outpatient P MARLENI GOETZ [facility] [id number] [facility] 2021-07-15 00:00:00 2021-07-15 00:00:00 Patient Secure MsJazmyne Hair [facility] CATERING OPERATIONS MANAGER [facility] & [facility] 1.2840.114 350.1.13.10 4.2.7.2.686 [id number] 107 [id number] [facility] 2021-07-11 15:30:00 2021-07-11 16:24:03 Outpatient R JAZMYNE SOFIA [facility] [id number] [facility] 2021-07-11 15:30:00 2021-07-11 16:24:03 Routine Visit Jazmyne Sofia [facility] CATERING OPERATIONS MANAGER [facility] MATERNAL & [facility] 1.2840.114 350.1.13.10 4.2.7.2.686 [id number] 107 [id number] [facility] 2021-07-09 15:30:00 2021-07-09 15:30:00 Outpatient R JAZMYNE SOFIA [facility] [id number] [facility] 2021-07-08 13:30:00 2021-07-08 13:30:00 Outpatient R JAZMYNE SOFIA [facility] [id number] [facility] 2021-06-27 00:00:00 2021-06-27 00:00:00 Patient Secure Msg Azul Arteaga [facility] [place] 1.840.114 350.1.13.10 4.2.7.2.686 [id number] [facility] 2021-06-25 00:00:00 2021-06-25 00:00:00 Patient Secure Msg Jazmyne Sofia [facility] CATERING OPERATIONS MANAGER [facility] & [facility] 1.2840.114 350.1.13.10 4.2.7.2.686 [id number] [facility] 2021-06-25 00:00:00 2021-06-25 00:00:00 Telephone Jazmyne Sofia [facility] CATERING OPERATIONS MANAGER [facility] & [facility] 1.2840.114 350.1.13.10 4.2.7.2.686 [id number] 107 [id number] [facility] 2021-06-14 11:15:00 2021-06-14 16:56:08 Outpatient DAGOBERTO BAI [facility] [id number] [facility] 2021-06-14 11:15:41 2021-06-14 12:00:41 Telemedici ne Visit Ray Arteagatha Dagoberto Ambriz [facility] CATERING OPERATIONS MANAGER [facility] MATERNAL & [facility] 1.2.840.114 350.1.13.10 4.2.7.2.686 [id number] 107 [id number] [facility] 2021-06-11 15:30:00 2021-06-11 15:55:11 Outpatient R JAZMYNE SOFIA [facility] [id number] [facility] 2021-06-11 15:18:32 2021-06-11 15:55:11 Routine Visit Jazmyne Sofia [facility] CATERING OPERATIONS MANAGER [facility] & [facility] 1..840.114 350.1.13.10 4.2.7.2.686 [id number] 107 [id number] [facility] 2021-06-05 09:45:00 2021-06-05 09:45:00 Outpatient R ROSALINDA SAHA [facility] [id number] [facility] 2021-06-05 00:00:00 2021-06-05 00:00:00 Patient Secure Msg Jazmyne Sofia [facility] CATERING OPERATIONS MANAGER [facility] & [facility] 1..840.114 350.1.13.10 4.2.7.2.686 [id number] 107 [id number] [facility] 2021-06-04 00:00:00 2021-06-04 00:00:00 Patient Secure Msg Jazmyne Sofia [facility] CATERING OPERATIONS MANAGER [facility] & [facility] 1..840.114 350.1.13.10 4.2.7.2.686 [id number] 107 [id number] [facility] 2021-06-03 00:00:00 2021-06-03 00:00:00 Patient Secure Msg Jazmyne Sofia [facility] CATERING OPERATIONS MANAGER [facility] 1..114 350.1.13.10 4.2.7.2.686 [id number] [facility] 2021-05-31 14:20:21 2021-05-31 14:30:34 Rn Renal Visit Lab, [facility] 1.114 350.1.13.10 4.2.7.2.686 [id number] [facility] 2021-05-31 14:30:00 2021-05-31 14:30:00 Outpatient Kelly [facility] [id number] [facility] 2021-05-31 13:36:53 2021-05-31 14:17:07 Rn Renal Visit 5, [facility] Us Room Evelyn William Dwayne [facility] 1.114 350.1.13.10 4.2.7.2.686 [id number] [facility] 2021-05-31 00:00:00 2021-05-31 00:00:00 Case Management Pietro [facility] 1.114 350.1.13.10 4.2.7.2.686 [id number] [facility] 2021-05-30 13:00:00 2021-05-30 13:00:00 Outpatient R SRIDEVI GUZMÁN [facility] [id number] [facility] 2021-05-24 10:30:00 2021-05-24 10:30:00 Outpatient DAGOBERTO BAI [facility] [id number] [facility] 2021-05-20 00:00:00 2021-05-20 00:00:00 Patient Secure MsJazmyne Hair [facility] CATERING OPERATIONS MANAGER [facility] MATERNAL & [facility] 1.840.114 350.1.13.10 4.2.7.2.686 [id number] 107 [id number] [facility] 2021-05-20 00:00:00 2021-05-20 00:00:00 Jazmyne Santacruz [facility] CATERING OPERATIONS MANAGER [facility] & [facility] 1.840.114 350.1.13.10 4.2.7.2.686 [id number] [facility] 2021-05-20 00:00:00 2021-05-20 00:00:00 Telephone Bob Smith [facility] CATERING OPERATIONS MANAGER [facility] 1..114 350.1.13.10 4.2.7.2.686 [id number] [facility] 2021-05-16 15:21:31 2021-05-16 15:51:31 Rn Renal Visit Ultrasound, Sridevi Gray [facility] CATERING OPERATIONS MANAGER [facility] 1..114 350.1.13.10 4.2.7.2.686 [id number] [facility] 2021-05-16 13:00:00 2021-05-16 14:27:03 Outpatient R SRIDEVI GUZMÁN [facility] [id number] [facility] 2021-05-16 12:53:27 2021-05-16 14:27:03 Routine Visit Risk, EileenRmchp-Aparna p/High Sridevi Guzmán [facility] CATERING OPERATIONS MANAGER [facility] 1..114 350.1.13.10 4.2.7.2.686 [id number] 107 [id number] [facility] 2021-05-01 00:00:00 2021-05-01 00:00:00 Patient Secure Msg Doctor Unassigned, [place] [facility] 1.0.114 350.1.13.10 4.2.7.2.686 [id number] [facility] 2021-04-29 00:00:00 2021-04-29 00:00:00 Patient Secure Msg Jazmyne Sofia Aparna [facility] CATERING OPERATIONS MANAGER [facility] & [facility] 1.2.840.114 350.1.13.10 4.2.7.2.686 [id number] [facility] 2021-04-26 00:00:00 2021-04-26 00:00:00 Telephone Jazmyne Sofia Aparna [facility] CATERING OPERATIONS MANAGER [facility] 1.2.840.114 350.1.13.10 4.2.7.2.686 [id number] 107 [id number] [facility] 2021-04-25 13:00:10 2021-04-25 13:17:19 Rn Renal Visit Lab, [facility] Jazmyne N [facility] 1.2.840.114 350.1.13.10 4.2.7.2.686 [id number] 107 [id number] [facility] 2021-04-25 13:00:00 2021-04-25 13:00:00 Outpatient R [facility] [id number] [facility] 2021-04-25 00:00:00 2021-04-25 00:00:00 Patient Secure Jazmyne Sofia [facility] 1.2.840.114 350.1.13.10 4.2.7.2.686 [id number] [facility] 2021-04-23 14:39:09 2021-04-23 16:01:14 Initial Visit Colten Jazmyne Aparna [facility] CATERING OPERATIONS MANAGER [facility] 1.2.840.114 350.1.13.10 4.2.7.2.686 [id number] 107 [id number] [facility] 2021-04-23 14:15:00 2021-04-23 14:15:00 Outpatient R [facility] [id number] [facility] 2021-04-23 00:00:00 2021-04-23 00:00:00 Orders Only Doctor Unassigned, [place] [facility] 1.2.840.114 350.1.13.10 4.2.7.2.686 [id number] [facility] 2021-02-20 13:30:00 2021-02-20 13:30:00 Outpatient R BOB SMITH [facility] [id number] [facility] 2021-02-12 08:15:00 2021-02-12 08:15:00 Outpatient R MALAIKA QUIÑONES [facility] [id number] [facility] 2021-02-11 00:00:00 2021-02-11 00:00:00 Patient Secure Malaika Solo [facility] CATERING OPERATIONS MANAGER [facility] 1..840.114 350.1.13.10 4.2.7.2.686 [id number] 107 [id number] [facility] 2021-01-21 14:15:00 2021-01-21 14:15:00 Outpatient R [facility] [id number] [facility] 2021-01-16 00:00:00 2021-01-16 00:00:00 Patient Secure Bob Zapien [facility] CATERING OPERATIONS MANAGER [facility] 1..840.114 350.1.13.10 4.2.7.2.686 [id number] 107 [id number] [facility] 2020-11-06 12:45:00 2020-11-06 12:45:00 Outpatient MALAIKA BRADLEY [facility] [id number] [facility] 2020-11-01 13:30:00 2020-11-01 13:30:00 Outpatient R MALAIKA QUIÑONES [facility] [id number] [facility] 2020-10-11 15:45:00 2020-10-11 15:45:00 Outpatient R MALAIKA QUIÑONES [facility] [id number] [facility] 2020-10-11 15:45:00 2020-10-11 15:45:00 Outpatient R MALAIKA QUIÑONES [facility] [id number] [facility] 2020-10-08 08:30:00 2020-10-08 08:30:00 Outpatient R MALAIKA QUIÑONES [facility] [id number] [facility] 2020-10-05 00:00:00 2020-10-05 00:00:00 Patient Secure MsJazmyne Hair [facility] CATERING OPERATIONS MANAGER [facility] ..840.114 350.1.13.10 4.2.7.2.686 [id number] [facility] 2020-09-20 15:15:00 2020-09-20 15:15:00 Outpatient R JAZMYNE SOFIA [facility] [id number] [facility] 2020-09-13 15:00:00 2020-09-13 15:00:00 Outpatient R JAZMYNE SOFIA [facility] [id number] [facility] 2020-09-11 13:30:00 2020-09-11 13:30:00 Outpatient R [facility] [id number] [facility] 2020-09-10 00:00:00 2020-09-10 00:00:00 Patient Secure g Doctor Unassigned, [place] [facility] CATERING OPERATIONS MANAGER [facility] ..840.114 350.1.13.10 4.2.7.2.686 [id number] 107 [id number] [facility] 2020-09-07 13:45:00 2020-09-07 13:45:00 Outpatient JAZMYNE MCKINNEY [facility] [id number] [facility] 2020-09-07 13:45:00 2020-09-07 13:45:00 Outpatient R JAZMYNE SOFIA [facility] [id number] [facility] 2020-09-05 15:00:00 2020-09-05 15:00:00 Outpatient R [facility] [id number] [facility] 2020-09-05 15:00:00 2020-09-05 15:00:00 Outpatient R MALAIKA QUIÑONES [facility] [id number] [facility] 2020-08-08 00:00:00 2020-08-08 00:00:00 Patient Secure Msg Doctor Unassigned, [place] [facility] CATERING OPERATIONS MANAGER [facility] 1..840.114 350.1.13.10 4.2.7.2.686 [id number] [facility] 2020-08-08 00:00:00 2020-08-08 00:00:00 Patient Secure Msg Doctor Unassigned, [place] [facility] CATERING OPERATIONS MANAGER [facility] 1..840.114 350.1.13.10 4.2.7.2.686 [id number] [facility] 2020-08-06 15:00:00 2020-08-06 15:00:00 Outpatient R MALAIKA QUIÑONES [facility] [id number] [facility] 2020-06-13 15:33:13 2020-06-13 16:00:59 Nurse Visit Visit, Nhan-Rmchp Nurse Malaika Quiñones [facility]PER[facility] ..840.114 350.1.13.10 4.2.7.2.686 [id number] [facility] 2020-06-13 15:30:00 2020-06-13 15:30:00 Outpatient R [facility] [id number] [facility] 2020-06-13 15:30:00 2020-06-13 15:30:00 Outpatient R MALAIKA QUIÑONES [facility] [id number] [facility] 2020-05-31 13:00:00 2020-05-31 13:00:00 Outpatient R [facility] [id number] [facility] 2020-05-29 16:06:57 2020-05-29 16:35:53 Nurse Visit Visit, Ang-Rmchp Nurse Jazmyne Sofia [facility] CATERING OPERATIONS MANAGER [facility] 1..840.114 350.1.13.10 4.2.7.2.686 [id number] 107 [id number] [facility] 2020-05-29 16:00:00 2020-05-29 16:00:00 Outpatient R JAZMYNE SOFIA [facility] [id number] [facility] 2020-05-24 09:30:00 2020-05-24 09:30:00 Outpatient R [facility] [id number] [facility] 2020-05-22 08:30:00 2020-05-22 08:30:00 Outpatient R JAZMYNE SOFIA [facility] [id number] [facility] 2020-05-18 14:30:00 2020-05-18 14:30:00 Outpatient R JAZMYNE SOFIA [facility] [id number] [facility] 2020-05-16 15:30:00 2020-05-16 15:30:00 Outpatient R [facility] [id number] [facility] 2020-05-14 00:00:00 2020-05-14 00:00:00 Refill Doctor Unassigned, [place] [facility] CATERING OPERATIONS MANAGER [facility] 1..840.114 350.1.13.10 4.2.7.2.686 [id number] 107 [id number] [facility] 2020-05-10 10:00:00 2020-05-10 10:00:00 Outpatient R [facility] [id number] [facility] 2020-05-02 10:00:00 2020-05-02 10:00:00 Outpatient R [facility] [id number] [facility] 2020-05-01 14:00:00 2020-05-01 14:00:00 Outpatient R [facility] [id number] [facility] 2020-04-20 00:00:00 2020-04-20 00:00:00 Telephone Malaika Quiñones [facility] CATERING OPERATIONS MANAGER [facility] MATERNAL & [facility] 1.2.840.114 350.1.13.10 4.2.7.2.686 [id number] 107 [id number] [facility] 2020-04-17 12:45:27 2020-04-17 13:32:08 Office Visit Jazmyne Sofia [facility] CATERING OPERATIONS MANAGER [facility] 1.2.840.114 350.1.13.10 4.2.7.2.686 [id number] 107 [id number] [facility] 2020-04-17 12:45:00 2020-04-17 12:45:00 Outpatient R JAZMYNE SOFIA [facility] [id number] [facility] 2020-04-17 00:00:00 2020-04-17 00:00:00 Orders Only Doctor Unassigned, [place] [facility] 1.2.840.114 350.1.13.10 4.2.7.2.686 [id number] [facility] 2020-04-10 09:45:00 2020-04-10 09:45:00 Outpatient R JAZMYNE SOFIA [facility] [id number] [facility] 2020-04-05 14:15:00 2020-04-05 14:15:00 Outpatient R JAZMYNE SOFIA [facility] [id number] [facility] 2020-03-29 13:15:00 2020-03-29 13:15:00 Outpatient R MALAIKA QUIÑONES [facility] [id number] [facility] 2019-11-30 14:45:00 2019-11-30 14:45:00 Outpatient R BOB SMITH [facility] [id number] [facility] 2019-11-10 08:00:00 2019-11-10 08:00:00 Outpatient R [facility] [id number] [facility] 2019-11-09 08:03:51 2019-11-09 08:18:51 Telemedici ne Visit Bob Smith R [facility] CATERING OPERATIONS MANAGER [facility] MATERNAL & [facility] 1.2.840.114 350.1.13.10 4.2.7.2.686 [id number] 107 [id number] [facility] 2019-11-09 08:15:00 2019-11-09 08:15:00 Outpatient R BOB SMITH [facility] [id number] [facility] 2019-11-07 00:00:00 2019-11-07 00:00:00 Telephone Jazmyne Sofia [facility] CATERING OPERATIONS MANAGER [facility] MATERNAL & [facility] 1.2.840.114 [id number] [facility] 2019-10-02 03:45:04 2019-10-02 04:05:00 Emergency Castro Michael S [facility] [id number] [facility] Results Test Description Test Time Test Comments Results Result Co mments Source [facility] SARS-COV-2 ANTIGEN (BINAX NOW)2023-10-06 19:24:00* Test Item Value Reference Range Interpretation Comme nts POCT SARS-COV-2 ANTIGEN (celia t code = 52279-7) Not Detected Not Detected On board controls acceptable with C Line (test code = 3574) Yes Lab Interpretation (test cod e = 26369-5) Normal [facility] MOLECULAR [id number] 19:20:15* Test Item Value Reference Range Interpretation Comme nts POCT Molecular Strep (test c ode = 61264-1) Negative Negative Lab Interpretation (test cod e = 22452-7) Normal [facility] [id number] 21:43:00* Test Item Value Reference Range Interpretation Comme nts POCT PREG (test code = 1605) Negative On board controls acceptable with C Line (test code = 3574) Yes POCT PREG LOT # (test code = 3575) [id number] POCT PREG TEST DATE ( test code = 3576) 10/15/2024 Lab Interpretation (test cod e = 87044-0) Normal [facility] MOLECULAR [id number] 22:22:08* Test Item Value Reference Range Interpretation Comme nts POCT Molecular FluA (test co de = 74337-6) Negative Negative POCT Molecular FluB (test co de = 33539-9) Negative Negative Lab Interpretation (test cod e = 20126-3) Normal [facility] SARS-COV-2 ANTIGEN (BINAX NOW)2023-05-04 18:05:00* Test Item Value Reference Range Interpretation Comme nts POCT SARS-COV-2 ANTIGEN (celia t code = 92729-0) Not Detected Not Detected On board controls acceptable with C Line (test code = 3574) Yes [facility] MOLECULAR [id number] 17:55:48* Test Item Value Reference Range Interpretation Comme nts POCT Molecular Strep (test c ode = 23079-6) Negative Negative Lab Interpretation (test cod e = 36511-3) Normal [facility] [id number] 13:01:00* Test Item Value Reference Range Interpretation Comme nts POCT PREG (test code = 1605) Negative On board controls acceptable with C Line (test code = 3574) Yes POCT PREG LOT # (test code = 3575) POCT PREG TEST DATE ( test code = 3576) [facility] Notes Date/Time Note Provider Source 2024-03-01 15:16:44 Noted. [facility] 2024-03-01 15:08:59 Called patient and scheduled appointment for nexplanon removal on 03/15/24. Patient has active [employer] and we are [id number], patient states that she cancelled insurance on [id number]. Johanna Loja [facility] 2024-03-01 14:45:04 Miranda Lieberman is a 28 year old female Pt is needing to have nexplanon removed and needing appointment scheduled. Please contact pt. Myla Baez [facility] 2024-03-01 10:26:24 Noted. [facility] 2024-03-01 10:19:05 Patient was in clinic and was advised that she was out of network and has no [id number] benefits. Johanna Loja [facility] 2024-03-01 09:20:16 Pt returning missed call to resched procedure Please F/u Meek Hernandez [facility] 2024-02-17 13:39:57 Spoke with patient and scheduled appointment for 03/01/24 for nexplanon removal. Johanna Loja [facility] 2024-02-16 10:39:37 Miranda Lieberman is a 28 year old female calling to make an nexplanon removal appt . Please contact patient at [phone] (home) Isabel Mayorga [facility] 2023-07-12 17:11:50 Pt given printed and verbal discharge instructions regarding upper respiratory tract infection Pt verbalized understanding of instructions, pt awake alert oriented, resp reg unlabored, skin w/d, color appropriate for race, moves all ext well,pt encouraged to follow up with pcp. Advised to seek medical attention for new/prolonged/worsening of symptoms, No adverse reaction to meds given in ER noted upon discharge Awake, alert oriented, resp reg unlabored, skin w/d, pt leaving amb with steady gait, in no apparent distress, H Streeter RN [facility] 2023-07-12 15:28:11 Sore throat x 2 days with reports of fever. EE URN ATTENDANT Tin Macias RN [facility]
[2024-06-15 10:50] LABS: SARS-CoV-2 Antigen CONTROL BLUE LINE VIS/BG OK; SARS-CoV-2 Antigen Rapid Res Negative (Negative)
--- NOTE | 2024-06-15 11:11 | EDPHYS ---
Physician Documentation [facility] Name: Miranda Sanders Age: 29 yrs Sex: Female : 1995 Arrival Date: 06/15/2024 Time: 09:50 Bed 12 Private MD: ED Physician Samir Mary HPI: 06/15 10:15 This 29 yrs old Female presents to ER via Ambulatory with complaints of Flu Symptoms. rn 10:15 The patient or guardian reports flu symptoms. Onset: The symptoms/episode rn began/occurred yesterday. Severity of symptoms: At their worst the symptoms were mild, in the emergency department the symptoms are unchanged. Modifying factors: The symptoms are alleviated by nothing, the symptoms are aggravated by nothing. Associated signs and symptoms: Pertinent positives: fever, rhinorrhea, Pertinent negatives: vomiting. The patient has not experienced similar symptoms in the past. The patient has not recently seen a physician. Patient reports fever, headache, myalgias, runny nose and cough for 2 days. Reports brother sick as well and he is slowly improving without antibiotics. Denies shortness of breath.. Historical: - Allergies: :57 No Known Allergies; iw - PMHx: :57 Depression; PTSD; iw - Immunization history:: Adult Immunizations not up to date. - Infectious Disease History:: Denies. - Social history:: Smoking status: Reported history of juuling and/or vaping. - Family history:: not pertinent. - Hospitalizations: : No recent hospitalization is reported. ROS: 10:15 Constitutional: Negative for chills, and weight loss, Eyes: Negative for injury, pain, rn redness, and discharge, ENT: Positive for runny nose and congestion Neck: Negative for injury, pain, and swelling, Cardiovascular: Negative for chest pain, palpitations, and edema, Respiratory: Negative for shortness of breath, wheezing, and pleuritic chest pain, Abdomen/GI: Negative for abdominal pain, nausea, vomiting, diarrhea, and constipation, MS/Extremity: Negative for injury and deformity, Skin: Negative for injury, rash, and discoloration, Neuro: Negative for weakness, numbness, tingling, and seizure, Exam: 10:15 Constitutional: This is a well developed, well nourished patient who is awake, alert, rn and in no acute distress. Head/Face: Normocephalic, atraumatic. ENT: Mild pharyngeal erythema without stridor or exudate Neck: Nontender cervical lymphadenopathy. No meningismus Cardiovascular: Regular rate and rhythm. No pulse deficits. Respiratory: No increased work of breathing, no retractions or nasal flaring. MS/ Extremity: Pulses equal, no cyanosis. Neuro: Awake and alert, GCS 15 Vital Signs: :57 BP 109 / 71; Pulse 65; Resp 16 S; Temp 97.6; Pulse Ox 99% ; Weight 49.9 kg; Height 5 iw ft. 3 in. ; 09:57 Body Mass Index 19.49 (49.90 kg, 160.02 cm) iw MDM: 09:56 Medical Screening Exam initiated rn 11:10 Differential Diagnosis: Bronchitis Influenza Upper Respiratory Infection Sinusitis rn Pharyngitis Viral Syndrome. Data reviewed: vital signs, nurses notes, lab test result(s), and as a result, I will discharge patient. Counseling: I had a detailed discussion with the patient and/or guardian regarding the historical points, exam findings, and any diagnostic results supporting the discharge/admit diagnosis, the need for outpatient follow up, to return to the emergency department if symptoms worsen or persist or if there are any questions or concerns that arise at home. Special discussion: I discussed with the patient/guardian in detail that at this point there is no indication for admission to the hospital. It is understood, however, that if the symptoms persist or worsen the patient needs to return immediately for re-evaluation. 06/15 09:59 Order name: Flu; Complete Time: 11:10 iw 06/15 09:59 Order name: SARS RAPID; Complete Time: 11:10 iw Administered Medications: No medications were administered Disposition Summary: 06/15/24 11:11 Discharge Ordered Notes: Location: Home rn Problem: new rn Symptoms: have improved rn Condition: Stable rn Diagnosis - Acute upper respiratory infection, unspecified rn Followup: rn - With: Private Physician - When: As needed - Reason: Recheck today's complaints, Re-evaluation by your physician Discharge Instructions: - Discharge Summary Sheet rn - Upper Respiratory Infection, Adult rn Forms: - Work release form iw - Medication Reconciliation Form rn - 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 Day 2, 3, 4 , 5 take one (1) tablet once daily.; 6 tablet; Refills: 0, Product Selection Permitted Signatures: Dispatcher [employer] Meche Vee, RN RN Samir Joseph MD MD rn
--- NOTE | 2024-06-15 11:11 | ER ---
Nurse's Notes [facility] Name: Miranda Sanders Age: 29 yrs Sex: Female : 1995 Arrival Date: 06/15/2024 Time: 09:50 Bed 12 Private MD: Diagnosis: Acute upper respiratory infection, unspecified Presentation: 06/15 09:57 Chief complaint: Patient states: runny, body aches, cough X 2 days. Coronavirus screen: iw At this time, the client does not indicate any symptoms associated with coronavirus-19. Risk Assessment: Do you want to hurt yourself or someone else? Patient reports no desire to harm self or others. 09:57 Method Of Arrival: Ambulatory iw 09:57 Acuity: FIDELIA 4 iw 11:21 Ebola Screen: No symptoms or risks identified at this time. Initial Sepsis Screen: Does iw the patient meet any 2 criteria? No. Patient's initial sepsis screen is negative. Does the patient have a suspected source of infection? No. Patient's initial sepsis screen is negative. Onset of symptoms was June 15, 2024. Historical: - Allergies: :57 No Known Allergies; iw - PMHx: :57 Depression; PTSD; iw - Immunization history:: Adult Immunizations not up to date. - Infectious Disease History:: Denies. - Social history:: Smoking status: Reported history of juuling and/or vaping. - Family history:: not pertinent. - Hospitalizations: : No recent hospitalization is reported. Screenin:24 [facility] ED Fall Risk Assessment (Adult) History of falling in the last 3 months, iw including since admission No falls in past 3 months (0 pts) Confusion or Disorientation No (0 pts) Intoxicated or Sedated No (0 pts) Impaired Gait No (0 pts) Mobility Assist Device Used No (0 pt) Altered Elimination No (0 pt) Score/Fall Risk Level 0 - 2 = Low Risk Oriented to surroundings, Maintained a safe environment. Abuse screen: Denies threats or abuse. Denies injuries from another. Nutritional screening: No deficits noted. Nutritional screening: No deficits noted. Tuberculosis screening: No symptoms or risk factors identified. Assessment: 10:23 General: Appears in no apparent distress. Behavior is calm, cooperative. Pain: iw Complains of pain in head. Neuro: Level of Consciousness is awake, alert, obeys commands, Oriented to person, place, time, situation, Moves all extremities. Full function. Cardiovascular: Capillary refill < 3 seconds in bilateral fingers Patient's skin is warm and dry. Respiratory: Respiratory effort is even, unlabored, Respiratory pattern is regular, symmetrical. Respiratory: Reports cough that is non-productive. GI: Abdomen is flat. Derm: Skin is intact, is healthy with good turgor. Musculoskeletal: Range of motion: intact in all extremities. Vital Signs: 09:57 BP 109 / 71; Pulse 65; Resp 16 S; Temp 97.6; Pulse Ox 99% ; Weight 49.9 kg; Height 5 iw ft. 3 in. ; 09:57 Body Mass Index 19.49 (49.90 kg, 160.02 cm) iw ED Course: 09:53 Patient arrived in ED. mr 09:56 Samir Mary MD is Attending Physician. rn 09:57 Meche Abel RN is Primary Nurse. iw 09:57 Triage completed. iw 10:24 Patient has correct armband on for positive identification. Provided Education on: . iw 11:20 No provider procedures requiring assistance completed. Patient did not have IV access iw during this emergency room visit. Administered Medications: No medications were administered Medication: 10:24 VIS not applicable for this client. iw Outcome: 11:11 Discharge ordered by . rn 11:20 Discharged to home ambulatory, iw 11:20 Condition: good 11:20 Discharge instructions given to patient, Instructed on discharge instructions, follow up and referral plans. Demonstrated understanding of instructions, follow-up care, medications, Prescriptions given X 1, 11:21 Patient left the ED. iw Signatures: Rebeca Oliveira, Reg Reg Meceh Abel, RN RN iw Samir Mary MD MD stitch burnisher: (The following items were deleted from the chart) 09:59 09:57 BP 109 / 71; Pulse 65bpm; Pulse Ox 99%; 49.9 kg; Height 5 ft. 3 in.; BMI: 19.4; iwiw
[2024-06-15 16:00] VITALS: BP 109/71; TEMP 97.6; O2SAT 99
== END 2024-06-15 11:21 | disposition home or self-care (01) ==
LOC: ER 09:50
DX: J06.9 Acute upper respiratory infection, unspecified (principal); Z11.52 Encounter for screening for COVID-19
CPT/HCPCS: 36415; 87804; 87811; 99283

== ENCOUNTER 2024-07-12 21:10 | Emergency (ER) | payer SELFPAY ==
--- OUTSIDE RECORDS SUMMARY | 2024-07-12 21:14 | XMS REPORT | Continuity of Care Document ---
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 21:43:00 Bety Bazan [facility] URINALYSIS 2023-07-12 21:39:00 Juan AntonioBety dubon [facility] RAPID STREP SCREEN FOR GROUP A 2023-07-12 21:39:00 Bety Bazan [facility] RAPID INFLUENZA A/B 2023-07-12 21:39:00 Juan Antonio, Bety [facility] COVID-19 (ID NOW RAPID TESTING) 2023-07-12 21:39:00 Juan Antonio Bety [facility] CONSENT/REFUSAL FOR DIAGNOSIS AND TREATMENT 2023-07-12 21:19:57 Doctor Unassigned, [place] [facility] POCT MOLECULAR FLU 2023-06-07 22:10:00 Unknown, Attend ing [facility] PATIENT FINANCIAL POLICY 2023-06-07 21:35:57 Doctor Unassigned, [place] [facility] POCT MOLECULAR STREP 2023-05-04 17:48:00 Unknown, Erica kerr [facility] ASSIGNMENT OF BENEFITS 2023-05-04 17:23:24 Docto r Unassigned, [place] [facility] POCT SARS-COV-2 ANTIGEN (BINAX NOW) 2023-05-04 00:00:00 Jackelyn Aaron [facility] POCT TEST 2022-01-02 13:01:00 Michelle Smith [facility] CONSENT FOR CONTRACEPTION 2022-01-02 05:01:00 Doctor Unassigned, [place] [facility] Encounters Start Date/Time End Date/Time Encounter Type Admission Type Attending Clinicians Care Facility Care Department Encounter ID Source 2021-05-09 15:26:20 Emergency [facility] [id number] [facility] 2024-04-22 00:00:00 2024-05-28 18:24:56 Patient Secure Mony Lynch [facility] MATERNAL & CHILD [facility] 1.2.840.114 350.1.13.10 4.2.7.2.686 [id number] [facility] 2024-03-01 00:00:00 2024-04-02 18:20:06 Patient Secure Mony Lynch [facility] M[facility] ST[facility] & CHILD [facility] 1.2.840.114 350.1.13.10 4.2.7.2.686 [id number] [facility] 2024-03-15 10:45:00 2024-03-15 11:59:22 Outpatient R MONY LEE [facility] [id number] [facility] 2024-03-15 10:45:00 2024-03-15 11:59:22 Office Visit Jesus Mony [facility] & CHILD [facility] 1.2.840.114 350.1.13.10 4.2.7.2.686 [id number] 107 [id number] [facility] 2024-03-01 00:00:00 2024-03-01 15:16:51 Telephone Mony Lee [facility] 1.2.840.114 350.1.13.10 4.2.7.2.686 [id number] [facility] 2024-03-01 00:00:00 2024-03-01 10:26:40 Telephone Jesus Mony [facility] M[facility] STENCILER [facility] CHILD [facility] 1.2.840.114 350.1.13.10 4.2.7.2.686 [id number] [facility] 2024-03-01 09:30:00 2024-03-01 09:30:00 Outpatient R MONY LEE [facility] [id number] [facility] 2024-02-16 00:00:00 2024-02-17 13:47:21 Telephone Malaika Quiñones [facility] M[facility] STENC[facility] CHILD [facility] 1.2.840.114 350.1.13.10 4.2.7.2.686 [id number] [facility] 2023-10-06 13:40:00 2023-10-06 14:31:24 Outpatient R EMPERATRIZ KEY [facility] [id number] [facility] 2023-10-06 13:40:00 2023-10-06 14:31:24 Urgent Care Emperatriz Key Unknown, Attending [facility] 1.84.114 350.1.13.10 4.2.7.2.686 [id number] [facility] 2023-07-12 15:29:00 2023-07-12 17:12:00 Emergency X JUAN ANTONIO BETY [facility] ERT [id number] [facility] 2023-07-12 15:29:00 2023-07-12 17:12:00 Emergency Bety Bazan [facility] 1.84.114 350.1.13.10 4.2.7.2.686 [id number] [facility] 2023-06-07 15:40:00 2023-06-07 16:38:27 Outpatient R MARTINA JOSEPH [facility] [id number] [facility] 2023-06-07 15:40:00 2023-06-07 16:38:27 Urgent Care Martina Joseph Unknown, Attending [facility] MED[facility] OFFICE BUILD[facility] 1.84.114 350.1.13.10 4.2.7.2.686 [id number] [facility] 2023-06-07 00:00:00 2023-06-07 00:00:00 Orders Only Doctor Unassigned, [place] [facility] 1.114 350.1.13.10 4.2.7.2.686 [id number] [facility] 2023-05-04 12:30:00 2023-05-04 13:05:57 Outpatient R JACKELYN AARON [facility] [id number] [facility] 2023-05-04 12:30:00 2023-05-04 13:05:57 Urgent Care Jackelyn Aaron Unknown, Attending [facility] MED[facility] OFFICE BUILD[facility] 1.2.114 350.1.13.10 4.2.7.2.686 [id number] [facility] 2023-05-04 00:00:00 2023-05-04 00:00:00 Orders Only Doctor Unassigned, [place] [facility] 1.2840.114 350.1.13.10 4.2.7.2.686 [id number] [facility] 2023-05-04 00:00:00 2023-05-04 00:00:00 Letter (Out) Jackelyn Aaron [facility] 1.114 350.1.13.10 4.2.7.2.686 [id number] [facility] 2023-01-23 08:23:45 2023-01-23 08:23:45 Outpatient SFA [facility] [id number] Fantasma Gutierrez Brannon 2023-01-16 00:00:00 2023-01-16 00:00:00 Case Management Rosalinda Brown 1.114 350.1.13.10 4.2.7.2.686 [id number] [facility] 2023-01-09 08:42:33 2023-01-09 08:42:33 Outpatient SFA [facility] [id number] Fantasma Gutierrez Brannon 2022-12-19 08:54:20 2022-12-19 08:54:20 Outpatient SFA [facility] [id number] Fantasma Gutierrez [facility] 2022-11-12 00:00:00 2022-11-12 00:00:00 Patient Secure Jazmyne Adames [facility] M[facility] STENC[facility]ER [facility] MATERNAL & CHILD HEALTH [facility] 1..114 350.1.13.10 4.2.7.2.686 [id number] [facility] 2022-09-05 00:00:00 2022-09-05 00:00:00 Patient Secure Msg Doctor Unassigned, [place] [facility] 1.2.840.114 350.1.13.10 4.2.7.2.686 [id number] [facility] 2022-04-21 00:00:00 2022-04-21 00:00:00 Telephone Bob Smith [facility] M[facility] STENC[facility] & CHILD [facility] 1.2.840.114 350.1.13.10 4.2.7.2.686 [id number] [facility] 2022-01-23 00:00:00 2022-01-23 00:00:00 Patient Secure Msg Malaika Quiñones [facility] M[facility] & CHILD [facility] 1.2.840.114 350.1.13.10 4.2.7.2.686 [id number] [facility] 2022-01-02 07:45:00 2022-01-02 09:09:31 Office Visit Bob Smith [facility] 1.2.840.114 350.1.13.10 4.2.7.2.686 [id number] [facility] 2022-01-02 07:45:00 2022-01-02 09:09:31 Outpatient R BOB SMITH [facility] [id number] [facility] 2022-01-02 07:45:00 2022-01-02 09:09:31 Outpatient BOB KIRKLAND [facility] [id number] [facility] 2022-01-02 07:45:00 2022-01-02 07:45:00 Outpatient R BOB SMITH [facility] [id number] [facility] 2022-01-02 00:00:00 2022-01-02 00:00:00 Orders Only Doctor Unassigned, [place] [facility] 1.2.840.114 350.1.13.10 4.2.7.2.686 [id number] [facility] 2022-01-01 08:45:00 2022-01-01 08:45:00 Outpatient BOB KIRKLAND [facility] [id number] [facility] 2022-01-01 08:45:00 2022-01-01 08:45:00 Outpatient R SMITHEVIENINOSKA [facility] [id number] [facility] 2022-01-01 08:45:00 2022-01-01 08:45:00 Outpatient R SMITHEVIENINOSKA [facility] [id number] [facility] 2021-12-16 00:00:00 2021-12-16 00:00:00 Patient [facility] 1..840.114 350.1.13.10 4.2.7.2.686 [id number] [facility] 2021-12-11 10:45:00 2021-12-11 10:45:00 Routine Visit Malaika Quiñones [facility] M[facility] STENCILER [facility] MATERNAL & CHILD [facility] 1..840.114 350.1.13.10 4.2.7.2.686 [id number] [facility] 2021-12-11 10:45:00 2021-12-11 10:29:02 Outpatient R MALAIKA QUIÑONES [facility] [id number] [facility] 2021-12-11 10:45:00 2021-12-11 10:29:02 Outpatient R MALAIKA QUIÑONES [facility] [id number] [facility] 2021-12-03 14:30:00 2021-12-03 14:30:00 Outpatient P [facility] [id number] [facility] 2021-11-26 14:30:00 2021-11-26 14:30:00 Outpatient P [facility] [id number] [facility] 2021-11-19 20:59:00 2021-11-22 18:38:00 Inpatient P MARLENI GOETZ [facility] [id number] [facility] 2021-11-19 20:59:00 2021-11-22 18:38:00 Hospital Encounter Marleni Goetz [employer] [facility] 1.0.114 350.1.13.10 4.2.7.2.686 [id number] [facility] 2021-11-20 17:16:00 2021-11-21 03:48:00 Anesthesia Event Felipe Silva, Ashley [facility] 1..114 350.1.13.10 4.2.7.2.686 [id number] [facility] 2021-11-19 15:45:00 2021-11-19 16:16:52 Outpatient R LEA ESCOBEDOHA [facility] [id number] [facility] 2021-11-19 15:45:00 2021-11-19 16:16:52 [facility]..114 350.1.13.10 4.2.7.2.686 [id number] [facility] 2021-11-19 14:30:00 2021-11-19 15:23:39 [employer] Visit 5, [facility] 1.2.114 350.1.13.10 4.2.7.2.686 [id number] [facility] 2021-11-19 14:30:00 2021-11-19 15:23:39 Outpatient P ROACH, FREDY [facility] [id number] [facility] 2021-11-19 14:30:00 2021-11-19 15:23:39 Outpatient P FREDY ROACH [facility] [id number] [facility] 2021-11-18 00:00:00 2021-11-18 00:00:00 Patient Secure Msg Doctor Unassigned, [place] [facility] 1.840.114 350.1.13.10 4.2.7.2.686 [id number] [facility] 2021-11-15 14:45:00 2021-11-15 14:45:00 Outpatient JAZMYNE TOVAR EMILY [facility] [id number] [facility] 2021-11-14 00:00:00 2021-11-14 00:00:00 Malaika Dave [facility] M[facility] STENCILER [facility] MATERNAL & CHILD [facility] 1..840.114 350.1.13.10 4.2.7.2.686 [id number] [facility] 2021-11-12 14:30:00 2021-11-12 14:30:00 Outpatient ALAN PATEL [facility] [id number] [facility] 2021-11-08 14:45:00 2021-11-08 14:45:00 Outpatient ALTHEA UGARTE [facility] [id number] [facility] 2021-11-05 15:45:00 2021-11-05 16:01:10 Routine Visit Stewart Escobedo [facility] .840.114 350.1.13.10 4.2.7.2.686 [id number] [facility] 2021-11-05 14:30:00 2021-11-05 14:56:31 Outpatient P YONG DAVIS SHANNON [facility] [id number] [facility] 2021-11-05 14:30:00 2021-11-05 14:56:31 [employer] Visit 1, [facility] Us Room Yong Davis [facility] 1.2840.114 350.1.13.10 4.2.7.2.686 [id number] [facility] 2021-10-29 14:30:00 2021-10-29 15:08:22 [employer] Visit 1, [facility] Us Room Alhtea Westbrook Antonio F [facility] 1.0.114 350.1.13.10 4.2.7.2.686 [id number] [facility] 2021-10-29 13:30:00 2021-10-29 14:06:04 Outpatient ALTHEA UGARTE [facility] [id number] [facility] 2021-10-29 13:30:00 2021-10-29 14:06:04 Routine Visit Pietro Althea [facility] 1.0.114 350.1.13.10 4.2.7.2.686 [id number] [facility] 2021-10-28 00:00:00 2021-10-28 00:00:00 Patient Secure Msg Jazmyne Sofia [facility] M[facility] STENC[facility]ER [facility] MATERNAL & CHILD HEALTH [facility] 1.0.114 350.1.13.10 4.2.7.2.686 [id number] [facility] 2021-10-27 00:00:00 2021-10-27 00:00:00 Malaika Dave [facility] M[facility] STENCILER [facility] MATERNAL & CHILD HEALTH [facility] 1.2840.114 350.1.13.10 4.2.7.2.686 [id number] [facility] 2021-10-25 13:45:00 2021-10-25 13:45:00 Outpatient R ALTHEA WESTBROOK [facility] [id number] [facility] 2021-10-22 13:30:00 2021-10-22 14:36:16 Routine Visit Althea Westbrook [facility] 1..840.114 350.1.13.10 4.2.7.2.686 [id number] [facility] 2021-10-22 14:30:00 2021-10-22 14:30:00 Outpatient P BIJAL RAPP [facility] [id number] [facility] 2021-10-14 14:00:00 2021-10-14 14:00:00 Outpatient P [facility] [id number] [facility] 2021-10-08 14:45:00 2021-10-08 14:45:00 Outpatient R MALAIKA QUIÑONES [facility] [id number] [facility] 2021-10-08 00:00:00 2021-10-08 00:00:00 Abstract Malaika Quiñones [facility] M[facility] & CHILD [facility] 1..840.114 350.1.13.10 4.2.7.2.686 [id number] [facility] 2021-10-08 00:00:00 2021-10-08 00:00:00 Abstract Malaika Quiñones [facility] M[facility]ER [facility] & CHILD [facility] 1..840.114 350.1.13.10 4.2.7.2.686 [id number] [facility] 2021-10-07 13:00:00 2021-10-07 13:00:00 Outpatient P [facility] [id number] [facility] 2021-10-06 00:00:00 2021-10-06 00:00:00 Refill Malaika Quiñones [facility] M[facility] & CHILD [facility] 1..840.114 350.1.13.10 4.2.7.2.686 [id number] [facility] 2021-10-04 13:00:00 2021-10-04 15:29:27 [employer] Visit 5, [facility] 1.840.114 350.1.13.10 4.2.7.2.686 [id number] [facility] 2021-10-04 13:00:00 2021-10-04 13:00:00 Outpatient P MESFIN [facility] [id number] [facility] 2021-10-03 13:00:00 2021-10-03 13:00:00 Outpatient P MALAIKA QUIÑONES [facility] [id number] [facility] 2021-10-02 13:00:00 2021-10-02 13:00:00 Outpatient P [facility] [id number] [facility] 2021-09-30 14:15:00 2021-09-30 14:15:00 Outpatient P JAZMYNE SOFIA [facility] [id number] [facility] 2021-09-26 14:00:00 2021-09-26 14:00:00 Outpatient R MALAIKA QUIÑONES [facility] [id number] [facility] 2021-09-23 14:15:00 2021-09-23 15:26:06 [employer] Visit 1, [facility] Us Room [facility] 1.840.114 350.1.13.10 4.2.7.2.686 [id number] [facility] 2021-09-23 14:15:00 2021-09-23 14:15:00 Outpatient R RAMÍREZ CARRILLO [facility] [id number] [facility] 2021-09-22 00:00:00 2021-09-22 00:00:00 Bob Casas [facility] M[facility] STENCILER [facility] MATERNAL & CHILD [facility] 1.840.114 350.1.13.10 4.2.7.2.686 [id number] [facility] 2021-09-22 00:00:00 2021-09-22 00:00:00 Aurea Sridevi Guzmán [facility] M[facility] STENCILER [facility] CHILD [facility] 1.840.114 350.1.13.10 4.2.7.2.686 [id number] [facility] 2021-09-19 12:45:00 2021-09-19 12:45:00 Outpatient MALAIKA BRADLEY [facility] [id number] [facility] 2021-09-16 14:15:00 2021-09-16 15:14:33 [employer] Visit Ultrasound, Agata Edmondson [facility] M[facility] ST[employer]ER [facility] CHILD [facility] 1..114 350.1.13.10 4.2.7.2.686 [id number] [facility] 2021-09-16 14:15:00 2021-09-16 14:15:00 Outpatient AGATA TOURE [facility] [id number] [facility] 2021-09-16 00:00:00 2021-09-16 00:00:00 Telephone Sridevi Guzmán [facility] M[facility] [employer] MATERNAL & CHILD [facility] 1..114 350.1.13.10 4.2.7.2.686 [id number] [facility] 2021-09-06 00:00:00 2021-09-06 00:00:00 Patient Secure Jazmyne Adames [facility]ILD [facility] 1.840.114 350.1.13.10 [id number] [id number] [facility] 2021-09-05 13:00:00 2021-09-05 14:15:51 Outpatient SRIDEVI BUSH [facility] [id number] [facility] 2021-09-05 13:00:00 2021-09-05 14:15:51 Routine Visit Risk, EileenRmchp-N p/High Sridevi Guzmán [facility]ILD [facility] 1..840.114 350.1.13.10 4.2.7.2.686 [id number] [facility] 2021-09-05 13:00:00 2021-09-05 13:00:00 Outpatient SRIDEVI BUSH [facility] [id number] [facility] 2021-08-22 00:00:00 2021-08-22 00:00:00 Orders Only Doctor Unassigned, [place] [facility] 1..840.114 350.1.13.10 4.2.7.2.686 [id number] [facility] 2021-08-20 10:45:00 2021-08-20 10:45:00 Outpatient MARIO ALBERTO ZAMBRANO [facility] [id number] [facility] 2021-08-15 13:45:00 2021-08-15 15:06:53 Outpatient SRIDEVI BUSH [facility] [id number] [facility] 2021-08-15 13:45:00 2021-08-15 15:06:53 Routine Visit Risk, Ang-Rmchp-N p/High Manny Guzmánen [facility] M[facility] MATERNAL & CHILD [facility] ..840.114 350.1.13.10 4.2.7.2.686 [id number] 107 [id number] [facility] 2021-08-12 13:00:00 2021-08-12 13:00:00 Outpatient BOB KIRKLAND [facility] [id number] [facility] 2021-08-08 15:30:00 2021-08-08 15:30:00 Outpatient R CINDICHRISLAYNEMALAIKA [facility] [id number] [facility] 2021-08-08 00:00:00 2021-08-08 00:00:00 Orders Only Doctor Unassigned, [place] [facility] 1.2.840.114 350.1.13.10 4.2.7.2.686 [id number] [facility] 2021-07-30 00:00:00 2021-07-30 00:00:00 Orders Only Doctor Unassigned, [place] [facility] 1.20.114 350.1.13.10 4.2.7.2.686 [id number] [facility] 2021-07-25 00:00:00 2021-07-25 00:00:00 Abstract Bob Smith [facility] M[facility] & CHILD [facility] 1.0.114 350.1.13.10 4.2.7.2.686 [id number] [facility] 2021-07-22 10:45:00 2021-07-22 12:00:00 [employer] Visit Ultrasound, Marleni Vaughn Ikuvbogie [facility] M[facility] STENCILER [facility] MATERNAL & CHILD [facility] 1.0.114 350.1.13.10 4.2.7.2.686 [id number] [facility] 2021-07-22 10:45:00 2021-07-22 10:45:00 Outpatient P MARLENI GOETZ [facility] [id number] [facility] 2021-07-15 00:00:00 2021-07-15 00:00:00 Patient Secure MsJazmyne Hair [facility] M[facility] & CHILD [facility] 1.2840.114 350.1.13.10 4.2.7.2.686 [id number] 107 [id number] [facility] 2021-07-11 15:30:00 2021-07-11 16:24:03 Outpatient R JAZMYNE SOFIA [facility] [id number] [facility] 2021-07-11 15:30:00 2021-07-11 16:24:03 Routine Visit Jazmyne Sofia [facility] M[facility] MATERNAL & CHILD [facility] 1.2840.114 350.1.13.10 4.2.7.2.686 [id number] [facility] 2021-07-09 15:30:00 2021-07-09 15:30:00 Outpatient R JAZMYNE SOFIA [facility] [id number] [facility] 2021-07-08 13:30:00 2021-07-08 13:30:00 Outpatient R JAZMYNE SOFIA [facility] [id number] [facility] 2021-06-27 00:00:00 2021-06-27 00:00:00 Patient Secure Msg Azul Arteaga [facility] [place] [place] 1.840.114 350.1.13.10 4.2.7.2.686 [id number] [facility] 2021-06-25 00:00:00 2021-06-25 00:00:00 Patient Secure Msg Jazmyne Sofia [facility] M[facility] & CHILD [facility] 1.2840.114 350.1.13.10 4.2.7.2.686 [id number] [facility] 2021-06-25 00:00:00 2021-06-25 00:00:00 Telephone Jazmyne Sofia [facility] M[facility] & CHILD [facility] 1.2840.114 350.1.13.10 4.2.7.2.686 [id number] 107 [id number] [facility] 2021-06-14 11:15:00 2021-06-14 16:56:08 Outpatient DAGOBERTO BAI [facility] [id number] [facility] 2021-06-14 11:15:41 2021-06-14 12:00:41 Telemedici ne Visit Ray Arteagatha Dagoberto Ambriz [facility] M[facility] MATERNAL & CHILD [facility] 1.2.840.114 350.1.13.10 4.2.7.2.686 [id number] 107 [id number] [facility] 2021-06-11 15:30:00 2021-06-11 15:55:11 Outpatient R JAZMYNE SOFIA [facility] [id number] [facility] 2021-06-11 15:18:32 2021-06-11 15:55:11 Routine Visit Jazmyne Sofia [facility] M[facility] & CHILD [facility] 1..840.114 350.1.13.10 4.2.7.2.686 [id number] 107 [id number] [facility] 2021-06-05 09:45:00 2021-06-05 09:45:00 Outpatient R ROSALINDA SAHA [facility] [id number] [facility] 2021-06-05 00:00:00 2021-06-05 00:00:00 Patient Secure Msg Jazmyne Sofia [facility] M[facility] & CHILD [facility] 1..840.114 350.1.13.10 4.2.7.2.686 [id number] 107 [id number] [facility] 2021-06-04 00:00:00 2021-06-04 00:00:00 Patient Secure Msg Jazmyne Sofia [facility] M[facility] & CHILD [facility] 1..840.114 350.1.13.10 4.2.7.2.686 [id number] 107 [id number] [facility] 2021-06-03 00:00:00 2021-06-03 00:00:00 Patient Secure Msg Jazmyne Sofia [facility] M[facility] & CHILD [facility] 1..114 350.1.13.10 4.2.7.2.686 [id number] 107 [id number] [facility] 2021-05-31 14:20:21 2021-05-31 14:30:34 [employer] Visit Lab, [facility] 1.114 350.1.13.10 4.2.7.2.686 [id number] [facility] 2021-05-31 14:30:00 2021-05-31 14:30:00 Outpatient Kelly [facility] [id number] [facility] 2021-05-31 13:36:53 2021-05-31 14:17:07 [employer] Visit 5, [facility] Us Room Evelyn William Dwayne [facility] 1.114 350.1.13.10 4.2.7.2.686 [id number] [facility] 2021-05-31 00:00:00 2021-05-31 00:00:00 Case Management Pietro [facility] 1.114 350.1.13.10 4.2.7.2.686 [id number] [facility] 2021-05-30 13:00:00 2021-05-30 13:00:00 Outpatient R SRIDEVI GUZMÁN [facility] [id number] [facility] 2021-05-24 10:30:00 2021-05-24 10:30:00 Outpatient DAGOBERTO BAI [facility] [id number] [facility] 2021-05-20 00:00:00 2021-05-20 00:00:00 Patient Secure MsJazmyne Hair [facility] M[facility] STENCILER [facility] MATERNAL & CHILD [facility] 1.840.114 350.1.13.10 4.2.7.2.686 [id number] 107 [id number] [facility] 2021-05-20 00:00:00 2021-05-20 00:00:00 Jazmyne Santacruz [facility] M[facility] & CHILD [facility] 1.840.114 350.1.13.10 4.2.7.2.686 [id number] [facility] 2021-05-20 00:00:00 2021-05-20 00:00:00 Telephone Bob Smith [facility] M[facility] & CHILD [facility] 1..114 350.1.13.10 4.2.7.2.686 [id number] 107 [id number] [facility] 2021-05-16 15:21:31 2021-05-16 15:51:31 [employer] Visit Ultrasound, Sridevi Gray [facility] M[facility] STENCILER [facility] & CHILD [facility] 1..114 350.1.13.10 4.2.7.2.686 [id number] [facility] 2021-05-16 13:00:00 2021-05-16 14:27:03 Outpatient R SRIDEVI GUZMÁN [facility] [id number] [facility] 2021-05-16 12:53:27 2021-05-16 14:27:03 Routine Visit Risk, EileenRmchp-Aparna p/High Sridevi Guzmán [facility] M[facility] STENCILER [facility] & CHILD [facility] 1..114 350.1.13.10 4.2.7.2.686 [id number] 107 [id number] [facility] 2021-05-01 00:00:00 2021-05-01 00:00:00 Patient Secure Msg Doctor Unassigned, [place] [facility] 1.0.114 350.1.13.10 4.2.7.2.686 [id number] [facility] 2021-04-29 00:00:00 2021-04-29 00:00:00 Patient Secure Msg Jazmyne Sofia Aparna [facility] M[facility] STENCIL[facility] & CHILD [facility] 1.2.840.114 350.1.13.10 4.2.7.2.686 [id number] [facility] 2021-04-26 00:00:00 2021-04-26 00:00:00 Telephone Jazmyne Sofia Aparna [facility] MILL STENCILER [facility] CHILD [facility] 1.2.840.114 350.1.13.10 4.2.7.2.686 [id number] 107 [id number] [facility] 2021-04-25 13:00:10 2021-04-25 13:17:19 [employer] Visit Lab, [facility] Jazmyne N [facility] 1.2.840.114 350.1.13.10 4.2.7.2.686 [id number] [facility] 2021-04-25 13:00:00 2021-04-25 13:00:00 Outpatient R [facility] [id number] [facility] 2021-04-25 00:00:00 2021-04-25 00:00:00 Patient Secure Jazmyne Sofia [facility] 1.2.840.114 350.1.13.10 4.2.7.2.686 [id number] [facility] 2021-04-23 14:39:09 2021-04-23 16:01:14 Initial Visit Colten Jazmyne Aparna [facility] 1.2.840.114 350.1.13.10 4.2.7.2.686 [id number] 107 [id number] [facility] 2021-04-23 14:15:00 2021-04-23 14:15:00 Outpatient R [facility] [id number] [facility] 2021-04-23 00:00:00 2021-04-23 00:00:00 Orders Only Doctor Unassigned, [place] [facility] 1.2.840.114 350.1.13.10 4.2.7.2.686 [id number] [facility] 2021-02-20 13:30:00 2021-02-20 13:30:00 Outpatient R BOB SMITH [facility] [id number] [facility] 2021-02-12 08:15:00 2021-02-12 08:15:00 Outpatient R MALAIKA QUIÑONES [facility] [id number] [facility] 2021-02-11 00:00:00 2021-02-11 00:00:00 Patient Secure Malaika Solo [facility] M[facility] STENCILER [facility] & CHILD [facility] 1..840.114 350.1.13.10 4.2.7.2.686 [id number] 107 [id number] [facility] 2021-01-21 14:15:00 2021-01-21 14:15:00 Outpatient R [facility] [id number] [facility] 2021-01-16 00:00:00 2021-01-16 00:00:00 Patient Secure Bob Zapien [facility] M[facility] STENCILER [facility] & CHILD [facility] 1..840.114 350.1.13.10 4.2.7.2.686 [id number] 107 [id number] [facility] 2020-11-06 12:45:00 2020-11-06 12:45:00 Outpatient MALAIKA BRADLEY [facility] [id number] [facility] 2020-11-01 13:30:00 2020-11-01 13:30:00 Outpatient R MALAIKA QUIÑONES [facility] [id number] [facility] 2020-10-11 15:45:00 2020-10-11 15:45:00 Outpatient R MALAIKA QUIÑONES [facility] [id number] [facility] 2020-10-11 15:45:00 2020-10-11 15:45:00 Outpatient R MALAIKA QUIÑONES [facility] [id number] [facility] 2020-10-08 08:30:00 2020-10-08 08:30:00 Outpatient R MALAIKA QUIÑONES [facility] [id number] [facility] 2020-10-05 00:00:00 2020-10-05 00:00:00 Patient Secure MsJazmyne Hair [facility] M[facility]IL[facility] & CHILD [facility] ..840.114 350.1.13.10 4.2.7.2.686 [id number] [facility] 2020-09-20 15:15:00 2020-09-20 15:15:00 Outpatient R JAZMYNE SOFIA [facility] [id number] [facility] 2020-09-13 15:00:00 2020-09-13 15:00:00 Outpatient R JAZMYNE SOFIA [facility] [id number] [facility] 2020-09-11 13:30:00 2020-09-11 13:30:00 Outpatient R [facility] [id number] [facility] 2020-09-10 00:00:00 2020-09-10 00:00:00 Patient Secure g Doctor Unassigned, [place] [facility] ..840.114 350.1.13.10 4.2.7.2.686 [id number] 107 [id number] [facility] 2020-09-07 13:45:00 2020-09-07 13:45:00 Outpatient JAZMYNE MCKINNEY [facility] [id number] [facility] 2020-09-07 13:45:00 2020-09-07 13:45:00 Outpatient R JAZMYNE SOFIA [facility] [id number] [facility] 2020-09-05 15:00:00 2020-09-05 15:00:00 Outpatient R [facility] [id number] [facility] 2020-09-05 15:00:00 2020-09-05 15:00:00 Outpatient R MALAIKA QUIÑONES [facility] [id number] [facility] 2020-08-08 00:00:00 2020-08-08 00:00:00 Patient Secure Msg Doctor Unassigned, [place] [facility] 1..840.114 350.1.13.10 4.2.7.2.686 [id number] [facility] 2020-08-08 00:00:00 2020-08-08 00:00:00 Patient Secure Msg Doctor Unassigned, [place] [facility] MILL STENCILER [facility] CHILD [facility] 1..840.114 350.1.13.10 4.2.7.2.686 [id number] 107 [id number] [facility] 2020-08-06 15:00:00 2020-08-06 15:00:00 Outpatient R MALAIKA QUIÑONES [facility] [id number] [facility] 2020-06-13 15:33:13 2020-06-13 16:00:59 Nurse Visit Visit, Nhan-Rmchp Nurse Malaika Quiñones [facility] ..840.114 350.1.13.10 4.2.7.2.686 [id number] 107 [id number] [facility] 2020-06-13 15:30:00 2020-06-13 15:30:00 Outpatient R [facility] [id number] [facility] 2020-06-13 15:30:00 2020-06-13 15:30:00 Outpatient R MALAIKA QUIÑONES [facility] [id number] [facility] 2020-05-31 13:00:00 2020-05-31 13:00:00 Outpatient R [facility] [id number] [facility] 2020-05-29 16:06:57 2020-05-29 16:35:53 Nurse Visit Visit, Ang-Rmchp Nurse Jazmyne Sofia [facility] M[facility] & CHILD [facility] 1..840.114 350.1.13.10 4.2.7.2.686 [id number] 107 [id number] [facility] 2020-05-29 16:00:00 2020-05-29 16:00:00 Outpatient R JAZMYNE SOFIA [facility] [id number] [facility] 2020-05-24 09:30:00 2020-05-24 09:30:00 Outpatient R [facility] [id number] [facility] 2020-05-22 08:30:00 2020-05-22 08:30:00 Outpatient R JAZMYNE SOFIA [facility] [id number] [facility] 2020-05-18 14:30:00 2020-05-18 14:30:00 Outpatient R JAZMYNE SOFIA [facility] [id number] [facility] 2020-05-16 15:30:00 2020-05-16 15:30:00 Outpatient R [facility] [id number] [facility] 2020-05-14 00:00:00 2020-05-14 00:00:00 Refill Doctor Unassigned, [place] [facility] M[facility] & CHILD [facility] 1..840.114 350.1.13.10 4.2.7.2.686 [id number] 107 [id number] [facility] 2020-05-10 10:00:00 2020-05-10 10:00:00 Outpatient R [facility] [id number] [facility] 2020-05-02 10:00:00 2020-05-02 10:00:00 Outpatient R [facility] [id number] [facility] 2020-05-01 14:00:00 2020-05-01 14:00:00 Outpatient R [facility] [id number] [facility] 2020-04-20 00:00:00 2020-04-20 00:00:00 Telephone Malaika Quiñones [facility] M[facility] ST[facility] MATERNAL & CHILD [facility] 1.2.840.114 350.1.13.10 4.2.7.2.686 [id number] 107 [id number] [facility] 2020-04-17 12:45:27 2020-04-17 13:32:08 Office Visit Jazmyne Sofia [facility] M[facility] & CHILD [facility] 1.2.840.114 350.1.13.10 4.2.7.2.686 [id number] 107 [id number] [facility] 2020-04-17 12:45:00 2020-04-17 12:45:00 Outpatient R JAZMYNE SOFIA [facility] [id number] [facility] 2020-04-17 00:00:00 2020-04-17 00:00:00 Orders Only Doctor Unassigned, [place] [facility] 1.2.840.114 350.1.13.10 4.2.7.2.686 [id number] [facility] 2020-04-10 09:45:00 2020-04-10 09:45:00 Outpatient R JAZMYNE SOFIA [facility] [id number] [facility] 2020-04-05 14:15:00 2020-04-05 14:15:00 Outpatient R JAZMYNE SOFIA [facility] [id number] [facility] 2020-03-29 13:15:00 2020-03-29 13:15:00 Outpatient R MALAIKA QUIÑONES [facility] [id number] [facility] 2019-11-30 14:45:00 2019-11-30 14:45:00 Outpatient R BOB SMITH [facility] [id number] [facility] 2019-11-10 08:00:00 2019-11-10 08:00:00 Outpatient R [facility] [id number] [facility] 2019-11-09 08:03:51 2019-11-09 08:18:51 Telemedici ne Visit Bob Smith R [facility] M[facility] MATERNAL & CHILD [facility] 1.2.840.114 350.1.13.10 4.2.7.2.686 [id number] [facility] 2019-11-09 08:15:00 2019-11-09 08:15:00 Outpatient R BOB SMITH [facility] [id number] [facility] 2019-11-07 00:00:00 2019-11-07 00:00:00 Telephone Jazmyne Sofia [facility] M[facility] MATERNAL & CHILD [facility] 1.2.840.114 350.1.13.10 4.2.7.2.686 [id number] 107 [id number] [facility] 2019-10-02 03:45:04 2019-10-02 04:05:00 Emergency Castro Michael S [facility] 1.2.840.114 350.1.13.10 4.2.7.2.686 [id number] [facility] Results Test Description Test Time Test Comments Results Result Co mments Source [facility] SARS-COV-2 ANTIGEN (BINAX NOW)2023-10-06 19:24:00* Test Item Value Reference Range Interpretation Comme nts POCT SARS-COV-2 ANTIGEN (celia t code = 77627-3) Not Detected Not Detected On board controls acceptable with C Line (test code = 3574) Yes Lab Interpretation (test cod e = 42487-4) Normal [facility] MOLECULAR [id number] 19:20:15* Test Item Value Reference Range Interpretation Comme nts POCT Molecular Strep (test c ode = 56140-6) Negative Negative Lab Interpretation (test cod e = 77284-6) Normal [facility] [id number] 21:43:00* Test Item Value Reference Range Interpretation Comme nts POCT PREG (test code = 1605) Negative On board controls acceptable with C Line (test code = 3574) Yes POCT PREG LOT # (test code = 3575) [id number] POCT PREG TEST DATE ( test code = 3576) 10/15/2024 Lab Interpretation (test cod e = 23329-6) Normal [facility] MOLECULAR [id number] 22:22:08* Test Item Value Reference Range Interpretation Comme nts POCT Molecular FluA (test co de = 05077-2) Negative Negative POCT Molecular FluB (test co de = 34070-9) Negative Negative Lab Interpretation (test cod e = 82302-4) Normal [facility] SARS-COV-2 ANTIGEN (BINAX NOW)2023-05-04 18:05:00* Test Item Value Reference Range Interpretation Comme nts POCT SARS-COV-2 ANTIGEN (celia t code = 47155-7) Not Detected Not Detected On board controls acceptable with C Line (test code = 3574) Yes [facility] MOLECULAR [id number] 17:55:48* Test Item Value Reference Range Interpretation Comme nts POCT Molecular Strep (test c ode = 35955-1) Negative Negative Lab Interpretation (test cod e = 82376-1) Normal [facility] [id number] 13:01:00* Test Item Value Reference Range Interpretation Comme nts POCT PREG (test code = 1605) Negative On board controls acceptable with C Line (test code = 3574) Yes POCT PREG LOT # (test code = 3575) POCT PREG TEST DATE ( test code = 3576) [facility]
[2024-07-12 21:37] LABS: Specific Gravity 1.002 (1.005-1.030)
[2024-07-12 21:39] LABS: Specific Gravity < 1.005 (1.005-1.030); Sqamous Epithelial None Seen /HPF (None Seen); Urine Bacteria None Seen /HPF (<20); Urine Bilirubin NEGATIVE (Negative); Urine Blood Negative (Negative); Urine Clarity Clear (Clear); Urine Color Colorless (Yellow); Urine Crystals Unidentified Few /HPF (None Seen); Urine Culture Reflex Order NOT NEEDED; Urine Glucose NEGATIVE (Negative); Urine Ketones NEGATIVE (Negative); Urine Microscopic Reflex YN ORDER UMIC; Urine Nitrite NEGATIVE (Negative); Urine Protein NEGATIVE (Negative); Urine RBC None Seen /HPF (None Seen); Urine Urobilinogen Normal (Normal); Urine WBC None Seen /HPF (<5); Urine pH 6.5 (5.0-7.0)
--- NOTE | 2024-07-12 21:52 | EDPHYS ---
Physician Documentation [facility] Name: Miranda Sanders Age: 29 yrs Sex: Female : 1995 Arrival Date: 07/12/2024 Time: 21:10 Bed 20 Private MD: ED Physician Alan Burdick HPI: 07/12 21:16 This 29 yrs old Female presents to ER via Unassigned with complaints of Low Back Pain, kb Fever, Pain With Urination. 21:16 Pt is a 29 year old female who presents for suprapubic pain that started 2 days ago and kb today has radiated to left flank. Reports dysuria and urinary frequency. Reports temp of 99.3 at highest. Denies vomiting, reports slight nausea. . 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 - Infectious Disease History:: Denies. - Social history:: Smoking status: Reported history of juuling and/or vaping. ROS: 21:17 Constitutional: As per HPI kb Exam: 21:17 Constitutional: This is a well developed, well nourished patient who is awake, alert, kb and in no acute distress. Head/Face: Normocephalic, atraumatic. ENT: Moist Mucous membranes Cardiovascular: Regular rate Respiratory: Respirations even and unlabored. No increased work of breathing. Talking in full sentences Abdomen/GI: Soft, non-tender. No distention Back: No spinal tenderness. No costovertebral tenderness. Full range of motion. Skin: Warm, dry with normal turgor. Normal color. MS/ Extremity: Pulses equal, no cyanosis. Neurovascular intact. Full, normal range of motion. Neuro: Awake and alert, GCS 15, oriented to person, place, time, and situation. Vital Signs: 21:20 BP 118 / 69; Pulse 54; Resp 17; Temp 98.4; Pulse Ox 100% ; Weight 50.8 kg; Height 5 ft. me1 2 in. ; Pain 4/10; 22:04 BP 121 / 68; Pulse 56; Resp 18; Pulse Ox 99% ; cp4 21:20 Body Mass Index 20.48 (50.80 kg, 157.48 cm) me1 21:20 Pain Scale: Adult me1 MDM: 21:15 Medical Screening Exam initiated kb 21:18 Differential diagnosis: UTI, kidney stone, pyelonephritis. Data reviewed: vital signs, kb nurses notes. Historians other than the Patient: Family Member: sister. 21:51 Counseling: I had a detailed discussion with the patient and/or guardian regarding the kb historical points, exam findings, and any diagnostic results supporting the discharge/admit diagnosis, lab results, the need for outpatient follow up, a family practitioner, to return to the emergency department if symptoms worsen or persist or if there are any questions or concerns that arise at home. 07/12 21:19 Order name: Test, Urine; Complete Time: 21:48 kb 07/12 21:19 Order name: Urinalysis w/ reflexes; Complete Time: 21:48 kb Administered Medications: No medications were administered Disposition: 07/13 06:45 Co-signature as Attending Physician, Alan Burdick MD I agree with the assessment and shiraz plan of care. Disposition Summary: 07/12/24 21:52 Discharge Ordered Notes: Location: Home kb Condition: Stable kb Diagnosis - Low back pain kb Followup: kb - With: Emergency Department - When: As needed - Reason: Worsening of condition Followup: kb - With: Private Physician - When: 2 - 3 days - Reason: Recheck today's complaints, Continuance of care, Re-evaluation by your physician Discharge Instructions: - Discharge Summary Sheet kb - Acute Back Pain, Adult kb - Urinary Frequency, Adult kb Forms: - Medication Reconciliation Form kb - Antibiotic Education kb - Prescription Opioid Use kb - Patient Portal Instructions kb - Leadership Thank You Letter kb Signatures: Dispatcher [employer] Marie Salcido, [employer]-C [employer]-Alan Rae MD MD cha Eddleman, Michelle, RN RN me1
--- NOTE | 2024-07-12 21:52 | ER ---
Nurse's Notes [facility] Name: Miranda Sanders Age: 29 yrs Sex: Female : 1995 Arrival Date: 07/12/2024 Time: 21:10 Bed 20 Private MD: Diagnosis: Low back pain Presentation: 07/12 21:20 Chief complaint: Patient states: c/o suprapubic and lower back pain 10/20, burning with me1 urination and frequency, fever today. Coronavirus screen: Vaccine status: Patient reports being unvaccinated. Ebola Screen: No symptoms or risks identified at this time. Initial Sepsis Screen: Does the patient meet any 2 criteria? Yes Does the patient have a suspected source of infection? No. Patient's initial sepsis screen is negative. Risk Assessment: Do you want to hurt yourself or someone else? Patient reports no desire to harm self or others. Onset of symptoms was July 10, 2024. 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 - Infectious Disease History:: Denies. - Social history:: Smoking status: Reported history of juuling and/or vaping. Screenin:31 [facility] ED Fall Risk Assessment (Adult) History of falling in the last 3 months, cp4 including since admission No falls in past 3 months (0 pts) Confusion or Disorientation No (0 pts) Intoxicated or Sedated No (0 pts) Impaired Gait No (0 pts) Mobility Assist Device Used No (0 pt) Altered Elimination No (0 pt) Score/Fall Risk Level 0 - 2 = Low Risk Oriented to surroundings, Maintained a safe environment, Assessed \T\ reinforced patient's understanding of fall precautions, Hourly rounding (assess needs \T\ fall precautionary measures) done. Abuse screen: Denies threats or abuse. Nutritional screening: No deficits noted. Tuberculosis screening: No symptoms or risk factors identified. Assessment: 21:31 General: Appears in no apparent distress. comfortable, Behavior is calm, cooperative, cp4 appropriate for age. Pain: Complains of pain in back and pelvis Pain does not radiate. Pain currently is 4 out of 10 on a pain scale. Neuro: Level of Consciousness is awake, alert, obeys commands, Oriented to person, place, time, situation. Cardiovascular: Patient's skin is warm and dry. Respiratory: Airway is patent Respiratory effort is even, unlabored. GI: No signs and/or symptoms were reported involving the gastrointestinal system. : Reports burning with urination, pain in suprapubic area in lower back urinary frequency. EENT: No signs and/or symptoms were reported regarding the EENT system. Derm: No signs and/or symptoms reported regarding the dermatologic system. Musculoskeletal: No signs and/or symptoms reported regarding the musculoskeletal system. Vital Signs: 21:20 BP 118 / 69; Pulse 54; Resp 17; Temp 98.4; Pulse Ox 100% ; Weight 50.8 kg; Height 5 ft. me1 2 in. ; Pain 4/10; 22:04 BP 121 / 68; Pulse 56; Resp 18; Pulse Ox 99% ; cp4 21:20 Body Mass Index 20.48 (50.80 kg, 157.48 cm) me1 21:20 Pain Scale: Adult pr1 ED Course: 21:14 Patient arrived in ED. gm2 21:15 aMrie Edwards FNP-C [facility]. kb 21:15 Alan Burdick MD is Attending Physician. kb 21:18 Carmen Chaves is Primary Nurse. cp4 21:22 Triage completed. me1 21:22 Arm band placed on Patient placed in an exam room. me1 21:31 Bed in low position. Call light in reach. Side rails up X 1. cp4 21:31 No provider procedures requiring assistance completed. cp4 22:04 Provided Education on: urinary frequecy. cp4 22:04 Patient did not have IV access during this emergency room visit. cp4 Administered Medications: No medications were administered Medication: 21:31 VIS not applicable for this client. cp4 Outcome: 21:52 Discharge ordered by . kb 22:04 Discharged to home ambulatory, cp4 22:04 Condition: stable 22:04 Discharge instructions given to patient, Instructed on discharge instructions, follow up and referral plans. Demonstrated understanding of instructions, follow-up care, 22:05 Patient left the ED. cp4 Signatures: Marie Edwards, LOGGING SUPERVISOR-C LOGGING SUPERVISOR-Ckb Nicolasa Menjivar, RN RN me1 Carmen Chaves cp4 Meggan Sanchez gm2
[2024-07-13 05:28] VITALS: TEMP 98.4
[2024-07-13 05:30] VITALS: BP 121/68; O2SAT 99
== END 2024-07-12 22:05 | disposition home or self-care (01) ==
LOC: ER 21:10
DX: M54.50 Low back pain, unspecified (principal); R30.0 Dysuria; R50.9 Fever, unspecified
CPT/HCPCS: 81001; 81025; 99282

== ENCOUNTER 2024-10-29 20:09 | Emergency (ER) | payer OTHER, SELFPAY ==
--- OUTSIDE RECORDS SUMMARY | 2024-10-29 20:15 | XMS REPORT | Continuity of Care Document ---
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 36.78 Sonia [facility] Respiratory rate 2024-09-08 20:38:00 17 /min [facility] Body height 2024-09-08 20:38:00 157.5 cm General acute hospital Body weight 2024-09-08 20:38:00 52.702 kg General acute hospital BMI 2024-09-08 20:38:00 21.25 kg/m2 General acute hospital Oxygen saturation in Arterial blood by Pulse oximetry 2024-09-08 20:38:00 98 /min [facility] Systolic blood pressure 2024-03-15 15:33:00 120 mm[Hg] [facility] Diastolic blood pressure 2024-03-15 15:33:00 77 mm[Hg] [facility] Heart rate 2024-03-15 15:33:00 70 /min Un[facility] Body temperature 2024-03-15 15:33:00 36.56 Sonia [facility] Respiratory rate 2024-03-15 15:33:00 16 /min [facility] Body height 2024-03-15 15:33:00 157.5 cm [facility] Body weight 2024-03-15 15:33:00 51.767 kg [facility] BMI 2024-03-15 15:33:00 20.87 kg/m2 [facility] Systolic blood pressure 2023-10-06 19:14:00 104 mm[Hg] [facility] Diastolic blood pressure 2023-10-06 19:14:00 71 mm[Hg] [facility] Heart rate 2023-10-06 19:14:00 90 /min Unive [facility] Body temperature 2023-10-06 19:14:00 36.56 Sonia [facility] Respiratory rate 2023-10-06 19:14:00 18 /min [facility] Body weight 2023-10-06 19:14:00 51.71 kg General acute hospital BMI 2023-10-06 19:14:00 20.85 kg/m2 General acute hospital Oxygen saturation in Arterial blood by Pulse oximetry 2023-10-06 19:14:00 99 /min [facility] Systolic blood pressure 2023-07-12 21:28:00 113 mm[Hg] [facility] Diastolic blood pressure 2023-07-12 21:28:00 91 mm[Hg] [facility] Heart rate 2023-07-12 21:28:00 88 /min [facility] Body temperature 2023-07-12 21:28:00 37 Sonia [facility] Respiratory rate 2023-07-12 21:28:00 18 /min [facility] Body height 2023-07-12 21:28:00 157.5 cm [facility] Body weight 2023-07-12 21:28:00 53.524 kg General acute hospital BMI 2023-07-12 21:28:00 21.58 kg/m2 [facility] Oxygen saturation in Arterial blood by Pulse oximetry 2023-07-12 21:28:00 100 /min [facility] Systolic blood pressure 2023-06-07 21:48:00 93 mm[Hg] [facility] Diastolic blood pressure 2023-06-07 21:48:00 62 mm[Hg] [facility] Heart rate 2023-06-07 21:48:00 83 /min Unive [facility] Body temperature 2023-06-07 21:48:00 36.83 Sonia [facility] Respiratory rate 2023-06-07 21:48:00 16 /min [facility] Body weight 2023-06-07 21:48:00 54.568 kg [facility] BMI 2023-06-07 21:48:00 22.00 kg/m2 General acute hospital Oxygen saturation in Arterial blood by Pulse oximetry 2023-06-07 21:48:00 99 /min [facility] Systolic blood pressure 2023-05-04 17:44:00 106 mm[Hg] [facility] Diastolic blood pressure 2023-05-04 17:44:00 66 mm[Hg] [facility] Heart rate 2023-05-04 17:44:00 84 /min Unive [facility] Body temperature 2023-05-04 17:44:00 36.83 Sonia [facility] Respiratory rate 2023-05-04 17:44:00 16 /min [facility] Body height 2023-05-04 17:44:00 157.5 cm [facility] 2023-05-04 17:44:00 55.566 kg General acute hospital BMI 2023-05-04 17:44:00 22.41 kg/m2 General acute hospital Oxygen saturation in Arterial blood by Pulse oximetry 2023-05-04 17:44:00 99 /min [facility] Systolic blood pressure 2022-01-02 12:59:00 126 mm[Hg] [facility] Diastolic blood pressure 2022-01-02 12:59:00 88 mm[Hg] [facility] Heart rate 2022-01-02 12:59:00 104 /min Unive [facility] Body temperature 2022-01-02 12:59:00 36.28 Sonia [facility] Respiratory rate 2022-01-02 12:59:00 18 /min [facility] Body height 2022-01-02 12:59:00 160 cm General acute hospital Body weight 2022-01-02 12:59:00 45.615 kg General acute hospital BMI 2022-01-02 12:59:00 17.81 kg/m2 General acute hospital Procedures Procedure Date / Time Performed Performing Clinician Source POCT URINALYSIS W/O SPECIFIC GRAVITY 2024-10-21 13:32:00 Rosalinda Cornejo [facility] POCT TEST 2024-10-21 13:31:00 Kaley Cornejo [facility] POCT MOLECULAR STREP 2024-09-08 20:36:00 Unknown, Attbambi kerr [facility] POCT MOLECULAR FLU 2023-10-06 19:15:00 Unknown, Attend ing [facility] POCT MOLECULAR STREP 2023-10-06 19:12:00 Unknown, Attbambi [facility] POCT SARS-COV-2 ANTIGEN (BINAX NOW) 2023-10-06 19:09:00 Emperatriz Key [facility] ASSIGNMENT OF BENEFITS 2023-07-12 21:57:55 Docto r Unassigned, [place] [facility] POCT TEST 2023-07-12 21:43:00 Beni Bety [facility] URINALYSIS 2023-07-12 21:39:00 Bety Romano [facility] RAPID STREP SCREEN FOR GROUP A 2023-07-12 21:39:00 eBni Bety [facility] RAPID INFLUENZA A/B 2023-07-12 21:39:00 Beni Bety [facility] COVID-19 (ID NOW RAPID TESTING) 2023-07-12 21:39:00 Beni [facility] CONSENT/REFUSAL FOR DIAGNOSIS AND TREATMENT 2023-07-12 21:19:57 Doctor Unassigned, [place] [facility] POCT MOLECULAR FLU 2023-06-07 22:10:00 Unknown, Attend ing [facility] PATIENT FINANCIAL POLICY 2023-06-07 21:35:57 Doctor Unassigned, [place] [facility] POCT MOLECULAR STREP 2023-05-04 17:48:00 Unknown, Attbambi kerr [facility] ASSIGNMENT OF BENEFITS 2023-05-04 17:23:24 Docto r Unassigned, [place] [facility] POCT SARS-COV-2 ANTIGEN (BINAX NOW) 2023-05-04 00:00:00 Jackelyn Aguero [facility] POCT TEST 2022-01-02 13:01:00 Michelle Smith [facility] CONSENT FOR CONTRACEPTION 2022-01-02 05:01:00 Doctor Unassigned, [place] [facility] Encounters Start Date/Time End Date/Time Encounter Type Admission Type Attending [facility] Care Facility Care Department Encounter ID Source 2021-05-09 15:26:20 Emergency [facility] [id number] General acute hospital 2024-11-18 07:15:00 2024-11-18 07:15:00 Outpatient R ROSALINDA CORNEJO [facility] [id number] General acute hospital 2024-10-27 00:00:00 2024-10-27 14:59:48 Patient Secure Rosalinda Cornejo [facility] ORACLE DATABASE DEVELOPER [facility] 1..840.114 350.1.13.10 4.2.7.2.686 [id number] General acute hospital 2024-10-27 00:00:00 2024-10-27 10:56:24 Telephone Rosalinda Cornejo [facility] ORACLE DATABASE DEVELOPER [facility] ..840.114 350.1.13.10 4.2.7.2.686 [id number] 107 [id number] General acute hospital 2024-10-27 00:00:00 2024-10-27 10:09:45 Patient Secure Rosalinda Cornejo [facility] ORACLE DATABASE DEVELOPER [facility] 1.2.840.114 350.1.13.10 4.2.7.2.686 [id number] General acute hospital 2024-10-25 00:00:00 2024-10-26 06:57:23 Patient Secure Msg Autumnpriya Rosalinda Ortiz [facility] ORACLE DATABASE DEVELOPER [facility] 1.2.840.114 350.1.13.10 4.2.7.2.686 [id number] General acute hospital 2024-10-25 00:00:00 2024-10-25 08:07:35 Telephone Autumnpriya Rosalinda Ortiz [facility] ORACLE DATABASE DEVELOPER [facility] 1.2.840.114 350.1.13.10 4.2.7.2.686 [id number] 107 [id number] General acute hospital 2024-10-21 08:30:00 2024-10-21 09:19:19 Outpatient R ROSALINDA CORNEJO [facility] [id number] General acute hospital 2024-10-21 08:30:00 2024-10-21 09:19:19 Initial Visit Rosalinda Cornejo [facility] 1.2.840.114 350.1.13.10 4.2.7.2.686 [id number] General acute hospital 2024-09-08 14:00:00 2024-09-08 14:20:00 Urgent Care Gwen Broussard, Attending [facility] 1.2.840.114 350.1.13.10 4.2.7.2.686 [id number] General acute hospital 2024-09-08 14:00:00 2024-09-08 14:00:00 Outpatient R [facility] [id number] General acute hospital 2024-09-08 14:00:2024-09-08 14:00:00 Outpatient R GWEN BROUSSARD [facility] [id number] General acute hospital 2024-04-22 00:00:00 2024-05-28 18:24:56 Patient Secure Mony Lynch [facility] ORACLE DATABASE DEVELOPER [facility] 1.2.840.114 350.1.13.10 4.2.7.2.686 [id number] General acute hospital 2024-03-01 00:00:00 2024-04-02 18:20:06 Patient Secure Msg [facility] ORACLE DATABASE DEVELOPER [facility] 1.2.840.114 350.1.13.10 4.2.7.2.686 [id number] General acute hospital 2024-03-15 10:45:00 2024-03-15 11:59:22 Outpatient R MONY LEE [facility] [id number] General acute hospital 2024-03-15 10:45:00 2024-03-15 11:59:22 Office Visit [facility] ORACLE DATABASE DEVELOPER [facility] 1.2.840.114 350.1.13.10 4.2.7.2.686 [id number] General acute hospital 2024-03-01 00:00:00 2024-03-01 15:16:51 Telephone Mony Lee [facility] ORACLE DATABASE DEVELOPER [facility] 1.2.840.114 350.1.13.10 4.2.7.2.686 [id number] General acute hospital 2024-03-01 00:00:00 2024-03-01 10:26:40 Telephone Mony Lee [facility] ORACLE DATABASE DEVELOPER [facility] 1.2.840.114 350.1.13.10 4.2.7.2.686 [id number] General acute hospital 2024-03-01 09:30:00 2024-03-01 09:30:00 Outpatient R MONY LEE [facility] [id number] General acute hospital 2024-02-16 00:00:00 2024-02-17 13:47:21 Telephone Malaika Quiñones [facility] ORACLE DATABASE DEVELOPER [facility] 1.840.114 350.1.13.10 4.2.7.2.686 [id number] 107 [id number] General acute hospital 2023-10-06 13:40:00 2023-10-06 14:31:24 Outpatient R EMPERATRIZ KEY [facility] [id number] General acute hospital 2023-10-06 13:40:00 2023-10-06 14:31:24 Urgent Care Emperatriz Key Unknown, Attending [facility] 1.840.114 350.1.13.10 4.2.7.2.686 [id number] General acute hospital 2023-07-12 15:29:00 2023-07-12 17:12:00 Emergency X BETY ROMANO [facility] ERT [id number] General acute hospital 2023-07-12 15:29:00 2023-07-12 17:12:00 Emergency Bety Romano [facility] 1.840.114 350.1.13.10 4.2.7.2.686 [id number] General acute hospital 2023-06-07 15:40:00 2023-06-07 16:38:27 Outpatient R MARTINA JOSEPH [facility] [id number] General acute hospital 2023-06-07 15:40:00 2023-06-07 16:38:27 Urgent Care Martina Joseph Unknown, Attending [facility] 1..840.114 350.1.13.10 4.2.7.2.686 [id number] General acute hospital 2023-06-07 00:00:00 2023-06-07 00:00:00 Orders Only Doctor Unassigned, [place] [facility] 1.2840.114 350.1.13.10 4.2.7.2.686 [id number] General acute hospital 2023-05-04 12:30:00 2023-05-04 13:05:57 Outpatient R JACKELYN AGUERO [facility] [id number] General acute hospital 2023-05-04 12:30:00 2023-05-04 13:05:57 Urgent Care Keyla Agueroallegra Unknown, Attending [facility] 1.114 350.1.13.10 4.2.7.2.686 [id number] General acute hospital 2023-05-04 00:00:00 2023-05-04 00:00:00 Orders Only Doctor Unassigned, [place] [facility] 1..114 350.1.13.10 4.2.7.2.686 [id number] General acute hospital 2023-05-04 00:00:00 2023-05-04 00:00:00 Letter (Out) [facility] 1.114 350.1.13.10 4.2.7.2.686 [id number] General acute hospital 2023-01-23 08:23:45 2023-01-23 08:23:45 Outpatient [facility] [id number] [place] 2023-01-16 00:00:00 2023-01-16 00:00:00 Case Management Rosalinda Brown 1..114 350.1.13.10 4.2.7.2.686 [id number] General acute hospital 2023-01-09 08:42:33 2023-01-09 08:42:33 Outpatient [facility] [id number] [place] 2022-12-19 08:54:20 2022-12-19 08:54:20 Outpatient [facility] [id number] [place] 2022-11-12 00:00:00 2022-11-12 00:00:00 Patient Secure Msg Jazmyne Sofia [facility] ORACLE DATABASE DEVELOPER [facility] 1.0.114 350.1.13.10 4.2.7.2.686 [id number] General acute hospital 2022-09-05 00:00:00 2022-09-05 00:00:00 Patient Secure Msg Doctor Unassigned, [place] [facility] 1.840.114 350.1.13.10 4.2.7.2.686 [id number] General acute hospital 2022-04-21 00:00:00 2022-04-21 00:00:00 Telephone Bob Smith [facility] ORACLE DATABASE DEVELOPER [facility] 1.0.114 350.1.13.10 4.2.7.2.686 [id number] General acute hospital 2022-01-23 00:00:00 2022-01-23 00:00:00 Patient Secure Msg Malaika Quiñones [facility] ORACLE DATABASE DEVELOPER [facility] 1.0.114 350.1.13.10 4.2.7.2.686 [id number] General acute hospital 2022-01-02 07:45:00 2022-01-02 09:09:31 Office Visit Bob Smith [facility] ORACLE DATABASE DEVELOPER [facility] 1.840.114 350.1.13.10 4.2.7.2.686 [id number] General acute hospital 2022-01-02 07:45:00 2022-01-02 09:09:31 Outpatient BOB KIRKLAND [facility] [id number] General acute hospital 2022-01-02 07:45:00 2022-01-02 09:09:31 [facility] [id number] General acute hospital 2022-01-02 07:45:00 2022-01-02 07:45:00 [id number] [facility] acute hospital 2022-01-02 00:00:00 2022-01-02 00:00:00 Orders Only Doctor Unassigned, [place] [facility] .0.114 350.1.13.10 4.2.7.2.686 [id number] General acute hospital 2022-01-01 08:45:00 2022-01-01 08:45:00 Outpatient EVIE KIRKLANDNINOSKA [facility] [id number] General acute hospital 2022-01-01 08:45:00 2022-01-01 08:45:00 Outpatient EVIE KIRKLANDNINOSKA [facility] [id number] General acute hospital 2022-01-01 08:45:00 2022-01-01 08:45:00 Outpatient EVIE KIRKLANDNINOSKA [facility] [id number] General acute hospital 2021-12-16 00:00:00 2021-12-16 00:00:00 Patient Secure Marleni Ravi Iknguyễn [facility] 1.840.114 350.1.13.10 4.2.7.2.686 [id number] General acute hospital 2021-12-11 10:45:00 2021-12-11 10:45:00 Routine Visit Malaika Quiñones [facility] ORACLE DATABASE DEVELOPER [facility] 1.0.114 350.1.13.10 4.2.7.2.686 [id number] General acute hospital 2021-12-11 10:45:00 2021-12-11 10:29:02 Outpatient R MALAIKA QUIÑONES [facility] [id number] General acute hospital 2021-12-11 10:45:00 2021-12-11 10:29:02 Outpatient R MALAIKA QUIÑONES [facility] [id number] General acute hospital 2021-12-03 14:30:00 2021-12-03 14:30:00 Outpatient P [facility] [id number] General acute hospital 2021-11-26 14:30:00 2021-11-26 14:30:00 Outpatient P [facility] [id number] General acute hospital 2021-11-19 20:59:00 2021-11-22 18:38:00 Inpatient P MARLENI GOETZ [facility] [id number] General acute hospital 2021-11-19 20:59:00 2021-11-22 18:38:00 Hospital Encounter Marleni Goetz [facility] 1..840.114 350.1.13.10 4.2.7.2.686 [id number] General acute hospital 2021-11-20 17:16:00 2021-11-21 03:48:00 Anesthesia Event Felipe Silva, [place] [facility] 1.2.840.114 350.1.13.10 4.2.7.2.686 [id number] General acute hospital 2021-11-19 15:45:00 2021-11-19 16:16:52 Outpatient R STEWART ESCOBEDO [facility] [id number] General acute hospital 2021-11-19 15:45:00 2021-11-19 16:16:52 Routine Visit Stewart Escobedo [facility] 1.114 350.1.13.10 4.2.7.2.686 [id number] General acute hospital 2021-11-19 14:30:00 2021-11-19 15:23:39 Shot Peening Operator Visit 5, [facility] Usg Room Alan Jennings Fredy Cristiano [facility] 1.114 350.1.13.10 4.2.7.2.686 [id number] General acute hospital 2021-11-19 14:30:00 2021-11-19 15:23:39 Outpatient P FREDY ROACH [facility] [id number] General acute hospital 2021-11-19 14:30:00 2021-11-19 15:23:39 Outpatient P [facility] [id number] General acute hospital 2021-11-18 00:00:00 2021-11-18 00:00:00 Patient Secure Msg Doctor Unassigned, [place] [facility] 1..114 350.1.13.10 4.2.7.2.686 [id number] General acute hospital 2021-11-15 14:45:00 2021-11-15 14:45:00 Outpatient JAZMYNE TOVAR EMILY [facility] [id number] General acute hospital 2021-11-14 00:00:00 2021-11-14 00:00:00 RefMalaika Butcher [facility] ORACLE DATABASE DEVELOPER [facility] 1.0.114 350.1.13.10 4.2.7.2.686 [id number] General acute hospital 2021-11-12 14:30:00 2021-11-12 14:30:00 Outpatient P MESFIN, ALAN [facility] [id number] General acute hospital 2021-11-08 14:45:00 2021-11-08 14:45:00 Outpatient YVES UGARTEANA [facility] [id number] General acute hospital 2021-11-05 15:45:00 2021-11-05 16:01:10 Routine Visit Stewart Escobedo [facility] 1.2840.114 350.1.13.10 4.2.7.2.686 [id number] General acute hospital 2021-11-05 14:30:00 2021-11-05 14:56:31 Outpatient P YONG DAVIS [facility] [id number] General acute hospital 2021-11-05 14:30:00 2021-11-05 14:56:31 Shot Peening Operator Visit 1, [facility] Us Room Yong Davis [facility] 1.2840.114 350.1.13.10 4.2.7.2.686 [id number] General acute hospital 2021-10-29 14:30:00 2021-10-29 15:08:22 Shot Peening Operator Visit 1, [facility] Us Room PietroAlthea Antonio F [facility] 1.20.114 350.1.13.10 4.2.7.2.686 [id number] General acute hospital 2021-10-29 13:30:00 2021-10-29 14:06:04 Outpatient Dwayne [facility] [id number] General acute hospital 2021-10-29 13:30:00 2021-10-29 14:06:04 Routine Visit [facility] 1.2.114 350.1.13.10 4.2.7.2.686 [id number] General acute hospital 2021-10-28 00:00:00 2021-10-28 00:00:00 Patient Secure Jazmyne Adames [facility] ORACLE DATABASE DEVELOPER [facility] 1.2.840.114 350.1.13.10 4.2.7.2.686 [id number] General acute hospital 2021-10-27 00:00:00 2021-10-27 00:00:00 Refill Malaika Quiñones [facility] ORACLE DATABASE DEVELOPER [facility] 1..840.114 350.1.13.10 4.2.7.2.686 [id number] General acute hospital 2021-10-25 13:45:00 2021-10-25 13:45:00 Outpatient R ALTHEA WESTBROOK [facility] [id number] General acute hospital 2021-10-22 13:30:00 2021-10-22 14:36:16 Routine Visit Althea Westbrook [facility] 1.840.114 350.1.13.10 4.2.7.2.686 [id number] General acute hospital 2021-10-22 14:30:00 2021-10-22 14:30:00 Outpatient P BIJAL RAPP [facility] [id number] General acute hospital 2021-10-14 14:00:00 2021-10-14 14:00:00 Outpatient P [facility] [id number] General acute hospital 2021-10-08 14:45:00 2021-10-08 14:45:00 Outpatient R MALAIKA QUIÑONES [facility] [id number] General acute hospital 2021-10-08 00:00:00 2021-10-08 00:00:00 Abstract Malaika Quiñones [facility] [employer]EL[employer] [facility] 1.2.840.114 350.1.13.10 4.2.7.2.686 [id number] General acute hospital 2021-10-08 00:00:00 2021-10-08 00:00:00 Abstract Malaika Quiñones [facility] [employer] DEVELOPER [facility] 1..840.114 350.1.13.10 4.2.7.2.686 [id number] General acute hospital 2021-10-07 13:00:00 2021-10-07 13:00:00 Outpatient P [facility] [id number] General acute hospital 2021-10-06 00:00:00 2021-10-06 00:00:00 Refill Malaika Quiñones [facility] [facility] ORACLE DATABASE DEVELOPER [facility] 1..840.114 350.1.13.10 4.2.7.2.686 [id number] 107 [id number] General acute hospital 2021-10-04 13:00:00 2021-10-04 15:29:27 Shot Peening Operator Visit 5, [facility] 1..840.114 350.1.13.10 4.2.7.2.686 [id number] General acute hospital 2021-10-04 13:00:00 2021-10-04 13:00:00 Outpatient P MESFIN ALAN [facility] [id number] General acute hospital 2021-10-03 13:00:00 2021-10-03 13:00:00 Outpatient P MALAIKA QUIÑONES [facility] [id number] General acute hospital 2021-10-02 13:00:00 2021-10-02 13:00:00 Outpatient P [facility] [id number] General acute hospital 2021-09-30 14:15:00 2021-09-30 14:15:00 Outpatient P JAZMYNE SOFIA [facility] [id number] General acute hospital 2021-09-26 14:00:00 2021-09-26 14:00:00 Outpatient R MALAIKA QUIÑONES [facility] [id number] General acute hospital 2021-09-23 14:15:00 2021-09-23 15:26:06 Shot Peening Operator Visit 1, [facility] To Ramírez Carrillo [facility] 1.84.114 350.1.13.10 4.2.7.2.686 [id number] General acute hospital 2021-09-23 14:15:00 2021-09-23 14:15:00 Outpatient R GAUS CARRILLOGERARD [facility]RILLO [facility] [id number] General acute hospital 2021-09-22 00:00:00 2021-09-22 00:00:00 RefBob Calhoun [facility] ORACLE DATABASE DEVELOPER [facility] 1.2.840.114 350.1.13.10 4.2.7.2.686 [id number] 107 [id number] General acute hospital 2021-09-22 00:00:00 2021-09-22 00:00:00 Sridevi Lovett [facility] ORACLE DATABASE DEVELOPER [facility] 1..840.114 350.1.13.10 4.2.7.2.686 [id number] 107 [id number] General acute hospital 2021-09-19 12:45:00 2021-09-19 12:45:00 Outpatient MALAIKA BRADLEY [facility] [id number] General acute hospital 2021-09-16 14:15:00 2021-09-16 15:14:33 Shot Peening Operator [facility] ORACLE DATABASE DEVELOPER [facility] 1..840.114 350.1.13.10 4.2.7.2.686 [id number] General acute hospital 2021-09-16 14:15:00 2021-09-16 14:15:00 Outpatient AGATA TOURE [facility] [id number] General acute hospital 2021-09-16 00:00:00 2021-09-16 00:00:00 Telephone Sridevi Guzmán [facility] ORACLE DATABASE DEVELOPER [facility] 1.2.840.114 350.1.13.10 4.2.7.2.686 [id number] 107 [id number] General acute hospital 2021-09-06 00:00:00 2021-09-06 00:00:00 Patient Secure Jazmyne Adames [facility] ORACLE DATABASE DEVELOPER [facility] 1.2840.114 350.1.13.10 4.2.7.2.686 [id number] 107 [id number] General acute hospital 2021-09-05 13:00:00 2021-09-05 14:15:51 Outpatient SRIDEVI BUSH [facility] [id number] General acute hospital 2021-09-05 13:00:00 2021-09-05 14:15:51 Routine Visit Risk, Ang-Rmchp-N p/High Ramirez Sridevi [facility] ORACLE DATABASE DEVELOPER [facility] 1.2.840.114 350.1.13.10 4.2.7.2.686 [id number] 107 [id number] General acute hospital 2021-09-05 13:00:00 2021-09-05 13:00:00 Outpatient SRIDEVI BUSH [facility] [id number] General acute hospital 2021-08-22 00:00:00 2021-08-22 00:00:00 Orders Only Doctor Unassigned, [place] [facility] 1.840.114 350.1.13.10 4.2.7.2.686 [id number] General acute hospital 2021-08-20 10:45:00 2021-08-20 10:45:00 Outpatient MARIO ALBERTO ZAMBRANO [facility] [id number] General acute hospital 2021-08-15 13:45:00 2021-08-15 15:06:53 Outpatient SRIDEVI BUSH [facility] [id number] General acute hospital 2021-08-15 13:45:00 2021-08-15 15:06:53 Routine Visit Risk, Nhan-Rmchp-N p/High Ramirez Sridevi L [facility] ORACLE DATABASE DEVELOPER [facility] 1.2.840.114 350.1.13.10 4.2.7.2.686 [id number] 107 [id number] General acute hospital 2021-08-12 13:00:00 2021-08-12 13:00:00 Outpatient BOB KIRKLAND [facility] [id number] General acute hospital 2021-08-08 15:30:00 2021-08-08 15:30:00 Outpatient R MALAIKA QUIÑONES [facility] [id number] General acute hospital 2021-08-08 00:00:00 2021-08-08 00:00:00 Orders Only Doctor Unassigned, [place] [facility] 1.2.840.114 350.1.13.10 4.2.7.2.686 [id number] General acute hospital 2021-07-30 00:00:00 2021-07-30 00:00:00 Orders Only Doctor Unassigned, [place] [facility] 1.2.840.114 350.1.13.10 4.2.7.2.686 [id number] General acute hospital 2021-07-25 00:00:00 2021-07-25 00:00:00 Bob Bernabe [facility] ORACLE DATABASE DEVELOPER [facility] 1.2.840.114 350.1.13.10 4.2.7.2.686 [id number] 107 [id number] General acute hospital 2021-07-22 10:45:00 2021-07-22 12:00:00 Shot Peening Operator Visit Ultrasound, Marleni Vaughn [facility] ORACLE DATABASE DEVELOPER [facility] 1.2.840.114 350.1.13.10 4.2.7.2.686 [id number] General acute hospital 2021-07-22 10:45:00 2021-07-22 10:45:00 Outpatient P MARLENI GOETZ [facility] [id number] General acute hospital 2021-07-15 00:00:00 2021-07-15 00:00:00 Patient Secure Msg Jazmyne Sofia [facility] ORACLE DATABASE DEVELOPER [facility] 1..840.114 350.1.13.10 4.2.7.2.686 [id number] 107 [id number] General acute hospital 2021-07-11 15:30:00 2021-07-11 16:24:03 Outpatient R JAZMYNE SOFIA [facility] [id number] General acute hospital 2021-07-11 15:30:00 2021-07-11 16:24:03 Routine Visit Jazmyne Sofia [facility] ORACLE DATABASE DEVELOPER [facility] 1..840.114 350.1.13.10 4.2.7.2.686 [id number] 107 [id number] General acute hospital 2021-07-09 15:30:00 2021-07-09 15:30:00 Outpatient R JAZMYNE SOFIA [facility] [id number] General acute hospital 2021-07-08 13:30:00 2021-07-08 13:30:00 Outpatient R JAZMYNE SOFIA [facility] [id number] General acute hospital 2021-06-27 00:00:00 2021-06-27 00:00:00 Patient Secure Msg Azul Arteaga [facility] 1..840.114 350.1.13.10 4.2.7.2.686 [id number] General acute hospital 2021-06-25 00:00:00 2021-06-25 00:00:00 Patient Secure Msg Jazmyne Sofia [facility] ORACLE DATABASE DEVELOPER [facility] 1.840.114 350.1.13.10 4.2.7.2.686 [id number] 107 [id number] General acute hospital 2021-06-25 00:00:00 2021-06-25 00:00:00 Telephone Jazmyne Sofia [facility] ORACLE DATABASE DEVELOPER [facility] 1.840.114 350.1.13.10 4.2.7.2.686 [id number] 107 [id number] General acute hospital 2021-06-14 11:15:00 2021-06-14 16:56:08 Outpatient DAGOBERTO BAI [facility] [id number] [facility] 2021-06-14 11:15:41 2021-06-14 12:00:41 Telemedici ne Visit Azul Arteaga Joseph W [facility] ORACLE DATABASE DEVELOPER [facility] 1.840.114 350.1.13.10 4.2.7.2.686 [id number] 107 [id number] General acute hospital 2021-06-11 15:30:00 2021-06-11 15:55:11 Outpatient R JAZMYNE SOFIA [facility] [id number] General acute hospital 2021-06-11 15:18:32 2021-06-11 15:55:11 Routine Visit Jazmyne Sofia [facility] ORACLE DATABASE DEVELOPER [facility] 1.840.114 350.1.13.10 4.2.7.2.686 [id number] 107 [id number] General acute hospital 2021-06-05 09:45:00 2021-06-05 09:45:00 Outpatient ROSALINDA MARTINEZ [facility] [id number] General acute hospital 2021-06-05 00:00:00 2021-06-05 00:00:00 Patient Secure Msg Jazmyne Sofia [facility] ORACLE DATABASE DEVELOPER [facility] 1..840.114 350.1.13.10 4.2.7.2.686 [id number] 107 [id number] General acute hospital 2021-06-04 00:00:00 2021-06-04 00:00:00 Patient Secure Jazmyne Adames [facility] ORACLE DATABASE DEVELOPER [facility] 1.2.840.114 350.1.13.10 4.2.7.2.686 [id number] 107 [id number] General acute hospital 2021-06-03 00:00:00 2021-06-03 00:00:00 Patient Secure Jazmyne Adames [facility] ORACLE DATABASE DEVELOPER [facility] 1.0.114 350.1.13.10 4.2.7.2.686 [id number] 107 [id number] General acute hospital 2021-05-31 14:20:21 2021-05-31 14:30:34 Shot Peening Operator Visit Lab, [facility] William RivasExcela [facility] 1..114 350.1.13.10 4.2.7.2.686 [id number] 113 [id number] General acute hospital 2021-05-31 14:30:00 2021-05-31 14:30:00 Outpatient P ALTHEA WESTBROOK [facility] [id number] General acute hospital 2021-05-31 13:36:53 2021-05-31 14:17:07 Shot Peening Operator Visit 5, [facility] Room William Rivas [facility] 1..114 350.1.13.10 4.2.7.2.686 [id number] 104 [id number] General acute hospital 2021-05-31 00:00:00 2021-05-31 00:00:00 Case Management Pietro [facility] 1.0.114 350.1.13.10 4.2.7.2.686 [id number] General acute hospital 2021-05-30 13:00:00 2021-05-30 13:00:00 Outpatient SRIDEVI BUSH [facility] [id number] General acute hospital 2021-05-24 10:30:00 2021-05-24 10:30:00 Outpatient Kelly DAGOBERTO MO [facility] [id number] [facility] 2021-05-20 00:00:00 2021-05-20 00:00:00 Patient Secure Jazmyne Adames [facility] ORACLE DATABASE DEVELOPER [facility] 1.2.840.114 350.1.13.10 4.2.7.2.686 [id number] 107 [id number] General acute hospital 2021-05-20 00:00:00 2021-05-20 00:00:00 Jazmyne Satnacruz [facility] ORACLE DATABASE DEVELOPER [facility] 1.2.840.114 350.1.13.10 4.2.7.2.686 [id number] 107 [id number] General acute hospital 2021-05-20 00:00:00 2021-05-20 00:00:00 Telephone SmithBob [facility] ORACLE DATABASE DEVELOPER [facility] 1.2.840.114 350.1.13.10 4.2.7.2.686 [id number] 107 [id number] General acute hospital 2021-05-16 15:21:31 2021-05-16 15:51:31 Shot Peening Operator Visit Ultrasound, Sridevi Gray [facility] ORACLE DATABASE DEVELOPER [facility] 1.2.840.114 350.1.13.10 4.2.7.2.686 [id number] General acute hospital 2021-05-16 13:00:00 2021-05-16 14:27:03 Outpatient SRIDEVI BUSH [facility] [id number] General acute hospital 2021-05-16 12:53:27 2021-05-16 14:27:03 Routine Visit Risk, EileenRmchp-N p/High Sridevi Guzmán [facility] ORACLE DATABASE DEVELOPER [facility] 1.2.840.114 350.1.13.10 4.2.7.2.686 [id number] 107 [id number] General acute hospital 2021-05-01 00:00:00 2021-05-01 00:00:00 Patient Secure Msg Doctor Unassigned, [place] [facility] 1.2.840.114 350.1.13.10 4.2.7.2.686 [id number] General acute hospital 2021-04-29 00:00:00 2021-04-29 00:00:00 Patient Secure Msg Jazmyne Sofia [facility] ORACLE DATABASE DEVELOPER [facility] 1.2.840.114 350.1.13.10 4.2.7.2.686 [id number] 107 [id number] General acute hospital 2021-04-26 00:00:00 2021-04-26 00:00:00 Telephone Jazmyne Sofia [facility] ORACLE DATABASE DEVELOPER [facility] 1.2.840.114 350.1.13.10 4.2.7.2.686 [id number] 107 [id number] General acute hospital 2021-04-25 13:00:10 2021-04-25 13:17:19 Shot Peening Operator Visit Lab, Jazmyne Gusman [facility] ORACLE DATABASE DEVELOPER [facility] 1.2.840.114 350.1.13.10 4.2.7.2.686 [id number] 107 [id number] General acute hospital 2021-04-25 13:00:00 2021-04-25 13:00:00 Outpatient R [facility] [id number] General acute hospital 2021-04-25 00:00:00 2021-04-25 00:00:00 Patient Secure Msg Jazmyne Sofia [facility] ORACLE DATABASE DEVELOPER [facility] 1.284.114 350.1.13.10 4.2.7.2.686 [id number] 107 [id number] General acute hospital 2021-04-23 14:39:09 2021-04-23 16:01:14 Initial Visit Jazmyne Sofia [facility] ORACLE DATABASE DEVELOPER [facility] 1.840.114 350.1.13.10 4.2.7.2.686 [id number] 107 [id number] General acute hospital 2021-04-23 14:15:00 2021-04-23 14:15:00 Outpatient R [facility] [id number] General acute hospital 2021-04-23 00:00:00 2021-04-23 00:00:00 Orders Only Doctor Unassigned, [place] [facility] 1.84.114 350.1.13.10 4.2.7.2.686 [id number] General acute hospital 2021-02-20 13:30:00 2021-02-20 13:30:00 Outpatient R BOB SMITH [facility] [id number] General acute hospital 2021-02-12 08:15:00 2021-02-12 08:15:00 Outpatient R MALAIKA QUIÑONES [facility] [id number] General acute hospital 2021-02-11 00:00:00 2021-02-11 00:00:00 Patient Secure Msg aMlaika Quiñones [facility] ORACLE DATABASE DEVELOPER [facility] 1.84.114 350.1.13.10 4.2.7.2.686 [id number] 107 [id number] General acute hospital 2021-01-21 14:15:00 2021-01-21 14:15:00 Outpatient R [facility] [id number] General acute hospital 2021-01-16 00:00:00 2021-01-16 00:00:00 Patient Secure Msg Bob Smith [facility] ORACLE DATABASE DEVELOPER [facility] 1.2.840.114 350.1.13.10 4.2.7.2.686 [id number] 107 [id number] General acute hospital 2020-11-06 12:45:00 2020-11-06 12:45:00 Outpatient R CINDICHRIS, MALAIKA [facility] [id number] General acute hospital 2020-11-01 13:30:00 2020-11-01 13:30:00 Outpatient R AKINSIPE, MALAIKA [facility] [id number] General acute hospital 2020-10-11 15:45:00 2020-10-11 15:45:00 Outpatient R AKINSIPE, MALAIKA [facility] [id number] General acute hospital 2020-10-11 15:45:00 2020-10-11 15:45:00 Outpatient R MICHAELMICHAEL MALAIKA [facility] [id number] General acute hospital 2020-10-08 08:30:00 2020-10-08 08:30:00 Outpatient R CINDICHRIS MALAIKA [facility] [id number] General acute hospital 2020-10-05 00:00:00 2020-10-05 00:00:00 Patient Secure Msg Jazmyne Sofia [facility] ORACLE DATABASE DEVELOPER [facility] 1.2.840.114 350.1.13.10 4.2.7.2.686 [id number] 107 [id number] General acute hospital 2020-09-20 15:15:00 2020-09-20 15:15:00 Outpatient R JAZMYNE SOFIA [facility] [id number] General acute hospital 2020-09-13 15:00:00 2020-09-13 15:00:00 Outpatient R JAZMYNE SOFIA [facility] [id number] General acute hospital 2020-09-11 13:30:00 2020-09-11 13:30:00 Outpatient R [facility] [id number] General acute hospital 2020-09-10 00:00:00 2020-09-10 00:00:00 Patient Secure Msg Doctor Unassigned, [place] [facility] ORACLE DATABASE DEVELOPER [facility] 1..840.114 350.1.13.10 4.2.7.2.686 [id number] General acute hospital 2020-09-07 13:45:00 2020-09-07 13:45:00 Outpatient R JAZMYNE SOFIA [facility] [id number] General acute hospital 2020-09-07 13:45:00 2020-09-07 13:45:00 Outpatient R JAZMYNE SOFIA [facility] [id number] General acute hospital 2020-09-05 15:00:00 2020-09-05 15:00:00 Outpatient R [facility] [id number] General acute hospital 2020-09-05 15:00:00 2020-09-05 15:00:00 Outpatient R MALAIKA QUIÑONES [facility] [id number] General acute hospital 2020-08-08 00:00:00 2020-08-08 00:00:00 Patient Secure Msg Doctor Unassigned, [place] [facility] ..840.114 350.1.13.10 4.2.7.2.686 [id number] 107 [id number] General acute hospital 2020-08-08 00:00:00 2020-08-08 00:00:00 Patient Secure Msg Doctor Unassigned, [place] [facility] OR[facility] DATABASE DEVELOPER [facility] ..840.114 350.1.13.10 4.2.7.2.686 [id number] 107 [id number] General acute hospital 2020-08-06 15:00:00 2020-08-06 15:00:00 Outpatient R MALAIKA QUIÑONES [facility] [id number] General acute hospital 2020-06-13 15:33:13 2020-06-13 16:00:59 Nurse Visit Visit, Ang-Rmchp Nurse aMlaika Quiñones [facility] DATABASE DEVELOPER [facility] 1.2.840.114 350.1.13.10 4.2.7.2.686 [id number] 107 [id number] General acute hospital 2020-06-13 15:30:00 2020-06-13 15:30:00 Outpatient R [facility] [id number] General acute hospital 2020-06-13 15:30:00 2020-06-13 15:30:00 Outpatient R MALAIKA QUIÑONES [facility] [id number] General acute hospital 2020-05-31 13:00:00 2020-05-31 13:00:00 Outpatient R [facility] [id number] General acute hospital 2020-05-29 16:06:57 2020-05-29 16:35:53 Nurse Visit Visit, Ang-Rmchp Nurse Jazmyne Sofia [facility] DATABASE DEVELOPER [facility] 1.2.840.114 350.1.13.10 4.2.7.2.686 [id number] 107 [id number] General acute hospital 2020-05-29 16:00:00 2020-05-29 16:00:00 Outpatient R JAZMYNE SOFIA [facility] [id number] General acute hospital 2020-05-24 09:30:00 2020-05-24 09:30:00 Outpatient R [facility] [id number] General acute hospital 2020-05-22 08:30:00 2020-05-22 08:30:00 Outpatient R JAZMYNE SOFIA [facility] [id number] General acute hospital 2020-05-18 14:30:00 2020-05-18 14:30:00 Outpatient R JAZMYNE SOFIA [facility] [id number] General acute hospital 2020-05-16 15:30:00 2020-05-16 15:30:00 Outpatient R [facility] [id number] General acute hospital 2020-05-14 00:00:00 2020-05-14 00:00:00 Refill Doctor Unassigned, [place] [facility] DATABASE DEVELOPER [facility] 1.2840.114 350.1.13.10 4.2.7.2.686 [id number] 107 [id number] General acute hospital 2020-05-10 10:00:00 2020-05-10 10:00:00 Outpatient R [facility] [id number] General acute hospital 2020-05-02 10:00:00 2020-05-02 10:00:00 Outpatient R [facility] [id number] General acute hospital 2020-05-01 14:00:00 2020-05-01 14:00:00 Outpatient R [facility] [id number] General acute hospital 2020-04-20 00:00:00 2020-04-20 00:00:00 Telephone Malaika Quiñones [facility] DATABASE DEVELOPER [facility] 1.84.114 350.1.13.10 4.2.7.2.686 [id number] 107 [id number] General acute hospital 2020-04-17 12:45:27 2020-04-17 13:32:08 Office Visit Jazmyne Sofia [facility] [employer] DATABASE DEVELOPER [facility] 1..840.114 350.1.13.10 4.2.7.2.686 [id number] 107 [id number] General acute hospital 2020-04-17 12:45:00 2020-04-17 12:45:00 Outpatient R JAZMYNE SOFIA [facility] [id number] General acute hospital 2020-04-17 00:00:00 2020-04-17 00:00:00 Orders Only Doctor Unassigned, [place] [facility] 1.84.114 350.1.13.10 4.2.7.2.686 [id number] General acute hospital 2020-04-10 09:45:00 2020-04-10 09:45:00 Outpatient R JAZMYNE SOFIA [facility] [id number] General acute hospital 2020-04-05 14:15:00 2020-04-05 14:15:00 Outpatient R JAZMYNE SOFIA [facility] [id number] General acute hospital 2020-03-29 13:15:00 2020-03-29 13:15:00 Outpatient R MALAIKA QUIÑONES [facility] [id number] General acute hospital 2019-11-30 14:45:00 2019-11-30 14:45:00 Outpatient R SMITHBOB [facility] [id number] General acute hospital 2019-11-10 08:00:00 2019-11-10 08:00:00 Outpatient R [facility] [id number] General acute hospital 2019-11-09 08:03:51 2019-11-09 08:18:51 Telemedici ne Visit Bob Smith [facility] DATABASE DEVELOPER [facility] 1..840.114 350.1.13.10 4.2.7.2.686 [id number] 107 [id number] General acute hospital 2019-11-09 08:15:00 2019-11-09 08:15:00 Outpatient R SMITH, BOB [facility] [id number] General acute hospital 2019-11-07 00:00:00 2019-11-07 00:00:00 Telephone Jazmyne Sofia [facility] DATABASE DEVELOPER [facility] 1..840.114 350.1.13.10 4.2.7.2.686 [id number] General acute hospital 2019-10-02 03:45:04 2019-10-02 04:05:00 Emergency [facility] 1..840.114 350.1.13.10 4.2.7.2.686 [id number] General acute hospital Results Test Description Test Time Test Comments Results Result [id number]* Test Item Value Reference Range Interpretation Comme nts POCT PREG (test code = 1605) Positive On board controls acceptable with C Line (test code = 3574) Yes POCT PREG LOT # (test code = 3575) POCT PREG TEST DATE ( test code = 3576) [facility] MOLECULAR [id number] 20:43:29* Test Item Value Reference Range Interpretation Comme nts POCT Molecular Strep (test c ode = 40109-0) Negative Negative Lab Interpretation (test cod e = 79778-1) Normal [facility] Molecular [id number] 19:27:27* Test Item Value Reference Range Interpretation Comme nts POCT Molecular FluA (test co de = 42779-1) Negative Negative POCT Molecular FluB (test co de = 03686-7) Negative Negative Lab Interpretation (test cod e = 89408-1) Normal [facility] SARS-COV-2 ANTIGEN (BINAX NOW)2023-10-06 19:24:00* Test Item Value Reference Range Interpretation Comme nts POCT SARS-COV-2 ANTIGEN (celia t code = 09756-3) Not Detected Not Detected On board controls acceptable with C Line (test code = 3574) Yes Lab Interpretation (test cod e = 95388-0) Normal [facility] MOLECULAR [id number] 19:20:15* Test Item Value Reference Range Interpretation Comme nts POCT Molecular Strep (test c ode = 16130-3) Negative Negative Lab Interpretation (test cod e = 75888-5) Normal [facility] [id number] 21:43:00* Test Item Value Reference Range Interpretation Comme nts POCT PREG (test code = 1605) Negative On board controls acceptable with C Line (test code = 3574) Yes POCT PREG LOT # (test code = 3575) 288157 POCT PREG TEST DATE ( test code = 3576) 10/15/2024 Lab Interpretation (test cod e = 21491-9) Normal [facility] MOLECULAR [id number] 22:22:08* Test Item Value Reference Range Interpretation Comme nts POCT Molecular FluA (test co de = 39905-1) Negative Negative POCT Molecular FluB (test co de = 22709-3) Negative Negative Lab Interpretation (test cod e = 35021-3) Normal [facility] SARS-COV-2 ANTIGEN (BINAX NOW)2023-05-04 18:05:00* Test Item Value Reference Range Interpretation Comme nts POCT SARS-COV-2 ANTIGEN (celia t code = 26171-6) Not Detected Not Detected On board controls acceptable with C Line (test code = 3574) Yes [facility] MOLECULAR [id number] 17:55:48* Test Item Value Reference Range Interpretation Comme nts POCT Molecular Strep (test c ode = 35625-8) Negative Negative Lab Interpretation (test cod e = 37394-4) Normal [facility] [id number] 13:01:00* Test Item Value Reference Range Interpretation Comme nts POCT PREG (test code = 1605) Negative On board controls acceptable with C Line (test code = 3574) Yes POCT PREG LOT # (test code = 3575) POCT PREG TEST DATE ( test code = 3576) [facility] Notes Date/Time Note Provider Source 2024-10-27 10:56:05 Called pt, pt to call when member ID is assigned. Misty Hernandez RN 10/27/24 10:56 AM [facility] 2024-10-27 10:48:55 Unable to e-verify patient coverage. Johanna Loja [facility] 2024-10-27 08:32:33 Pt is requesting referral ultrasound, states medicaid is active. Please call [phone] (home) [phone] (work) BONG Moran [facility] 2024-10-25 08:06:52 Patient informed of results and new orders, verbalized understanding. [facility] 2024-10-25 07:41:33 Please call patient and let her know I erx ampicillin for UTi [facility] 2024-03-01 15:16:44 Noted. [facility] 2024-03-01 15:08:59 Called patient and scheduled appointment for nexplanon removal on 03/15/24. Patient has active [employer] and we are [id number], patient states that she cancelled insurance on [id number]. Johanna Loja [facility] 2024-03-01 14:45:04 Miranda Sanders is a 28 year old female Pt is needing to have nexplanon removed and needing appointment scheduled. Please contact pt. Myla Baez [facility] 2024-03-01 10:26:24 Noted. [facility] 2024-03-01 10:19:05 Patient was in clinic and was advised that she was out of network and has no [id number] benefits. T Johanna Loja [facility] 2024-03-01 09:20:16 Pt returning missed call to resched procedure Please F/u Meek Hernandez [facility] 2024-02-17 13:39:57 Spoke with patient and scheduled appointment for 03/01/24 for nexplanon removal. Johanna Loja [facility] 2024-02-16 10:39:37 Miranda Sanders is a 28 year old female calling to make an nexplanon removal appt . Please contact patient at [phone] (home) Isabel Mayorga [facility] 2023-07-12 17:11:50 Pt given printed and verbal [...] in no apparent distress, H Streeter RN [facility] 2023-07-12 15:28:11 Sore throat x 2 days with reports of fever. 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
[2024-10-29 22:00] LABS: Absolute Basophils 0.2 K/uL (0-0.5); Absolute Eosinophils 0.1 K/uL (0-0.5); Absolute Lymphocytes (CBC) 2.3 K/uL (0.7-4.9); Absolute Monocytes 0.8 K/uL (0.1-1.3); Absolute Neutrophil 4.1 K/uL (1.8-8.0); Basophils % 2.6 % (0-1.3); Eosinophils % 1.4 % (0-4.4); Hematocrit 38.5 % (36.0-45.0); Hemoglobin 13.6 g/dL (12.0-15.0); Lymphocytes % 30.7 % (15.3-44.8); MCH 30.8 pg (27.0-35.0); MCHC 35.3 g/dL (32.0-36.0); MCV 87.3 fL (80-100); MPV 9.4 fL (7.6-11.3); Monocytes % 10.1 % (3.3-12.3); Neutrophils % 55.2 % (41.7-73.7); Nucleated Red Blood Cells % 0.1 % (0-0); Platelets 243 thou/uL (152-406); RBC Red Blood Cell Count 4.41 M/uL (3.86-4.86); Red Cell Distribution Width 13.1 % (12.1-15.2)
[2024-10-29] MEDS ORDERED: METOCLOPRAMIDE 10 MG/2mL INJ ONE (22:00)
[2024-10-29] MEDS ORDERED: FAMOTIDINE 20 MG/2 ML VIAL IV ONE (22:00)
[2024-10-29] MEDS ORDERED: DIPHENHYDRAMINE 50 MG/ML VIAL ONE (22:00)
[2024-10-29] MEDS ORDERED: NA CHLORIDE 0.9% 1,000 ML ONE (22:01)
[2024-10-29 22:35] LABS: ALT/SGPT 20 U/L (13-56); Albumin 4.2 g/dL (3.4-5.0); Albumin/Globulin Ratio 1.2 (1.1-1.8); Alkaline Phosphatase 74 U/L (45-117); Anion Gap 8.4 mEq/L (5.0-15.0); BUN Blood Urea Nitrogen 11 mg/dL (7-18); Bicarbonate 26 mEq/L (21-32); Bilirubin Total 0.7 mg/dL (0.2-1.0); Globulin 3.5 g/dL (2.3-3.5); Glomerular Filtration Rate 117 ml/min (=/>90); Glucose Level 97 mg/dL (74-106); Lipase 40 U/L (13-75); Potassium 3.4 mEq/L (3.5-5.1); Protein, Total 7.7 g/dL (6.4-8.2); Sodium Level 136 mEq/L (136-145)
[2024-10-29 22:37] LABS: Specific Gravity < 1.005 (1.005-1.030); Urine Bilirubin NEGATIVE (Negative); Urine Blood Negative (Negative); Urine Clarity Clear (Clear); Urine Color Colorless (Yellow); Urine Culture Reflex Order REFLEXED; Urine Glucose NEGATIVE (Negative); Urine Ketones NEGATIVE (Negative); Urine Microscopic Reflex YN NO UMIC; Urine Nitrite NEGATIVE (Negative); Urine Protein NEGATIVE (Negative); Urine Urobilinogen Normal (Normal)
[2024-10-29 22:38] LABS: Specific Gravity < 1.005 (1.005-1.030)
[2024-10-29 22:41] LABS: AST/SGOT < 10 U/L (15-37)
[2024-10-29 22:44] LABS: HCG, Quantitative 27599 mIU/mL (1-3)
--- NOTE | 2024-10-30 00:13 | EDPHYS ---
Physician Documentation [facility] Name: Miranda Sanders Age: 29 yrs Sex: Female : 1995 Arrival Date: 10/29/2024 Time: 20:09 Bed 17 Private MD: ED Physician Wisam Ortega HPI: 10/29 21:05 This 29 yrs old Female presents to ER via Ambulatory with complaints of cp Nausea/Vomiting, Headache. 21:05 The patient presents to the emergency department with nausea, that is moderate, cp vomiting, that is intermittent. 21:05 Onset: The symptoms/episode began/occurred this morning. Associated signs and symptoms: cp Pertinent positives: headache, Pertinent negatives: fever, GI bleeding. Severity of symptoms: in the emergency department the symptoms are unchanged despite home interventions. 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 - Infectious Disease History:: Denies. - Social history:: Smoking status: Reported history of juuling and/or vaping. Patient/guardian denies using alcohol, street drugs, the patient reports quitting approximately 2 years ago. ROS: 21:10 Constitutional: Positive for poor PO intake, Negative for fever, cp 21:10 Eyes: Negative for injury, pain, redness, and discharge, cp 21:10 Respiratory: Negative for cough, shortness of breath, wheezing, 21:10 Abdomen/GI: Positive for nausea and vomiting, Negative for diarrhea, constipation, 21:10 Neuro: Positive for headache, Negative for altered mental status, 21:10 All other systems are negative, Exam: 21:15 Constitutional: The patient appears in no acute distress, alert, awake, non-toxic, well cp developed, well nourished, uncomfortable, 21:15 Head/Face: Normocephalic, atraumatic. cp 21:15 Eyes: Periorbital structures: appear normal, Conjunctiva: normal, no exudate, no injection, Sclera: no appreciated abnormality, Lids and lashes: appear normal, bilaterally, 21:15 ENT: External ear(s): are unremarkable, Nose: is normal, Mouth: Lips: moist, Oral mucosa: moist, Posterior pharynx: Airway: no evidence of obstruction, patent, 21:15 Neck: ROM/movement: is normal, is supple, without pain, no range of motions limitations, 21:15 Chest/axilla: Inspection: normal, 21:15 Cardiovascular: Rate: normal, Rhythm: regular, 21:15 Respiratory: the patient does not display signs of respiratory distress, Respirations: normal, no use of accessory muscles, no retractions, labored breathing, is not present, Breath sounds: are clear throughout, no decreased breath sounds, no stridor, no wheezing, 21:15 Abdomen/GI: Inspection: abdomen appears normal, Bowel sounds: active, all quadrants, Palpation: soft, in all quadrants, mild abdominal tenderness, in all quadrants, 21:15 Back: CVA tenderness, is absent, 21:15 Neuro: Orientation: to person, place \T\ time. Mentation: is normal, Vital Signs: 20:30 BP 115 / 76; Pulse 65; Resp 16 S; Temp 98.8(O); Pulse Ox 100% on R/A; Weight 52.62 kg lg3 (R); Height 5 ft. 2 in. (R); 22:30 BP 115 / 69; Pulse 78; Resp 16; Pulse Ox 100% ; vc1 23:29 BP 96 / 72; Pulse 70; Resp 18; Pulse Ox 100% on R/A; kj2 10/30 00:32 BP 104 / 77; Pulse 68; Resp 17 S; Pulse Ox 100% on R/A; lg3 10/29 20:30 Body Mass Index 21.22 (52.62 kg, 157.48 cm) lg3 MDM: 10/29 20:45 Medical Screening Exam initiated 10/30 00:00 Differential diagnosis: gastritis, viral gastroenteritis, gastroenteritis, dehydration, cp electrolyte abnormality. 00:12 Data reviewed: vital signs, nurses notes, lab test result(s), radiologic studies, cp ultrasound, and as a result, I will discharge patient. 00:12 I considered the following discharge prescriptions or medication management in the emergency department Medications were administered in the Emergency Department. See MAR. Counseling: I had a detailed discussion with the patient and/or guardian regarding the historical points, exam findings, and any diagnostic results supporting the discharge/admit diagnosis, lab results, radiology results, to return to the emergency department if symptoms worsen or persist or if there are any questions or concerns that arise at home. Response to treatment: the patient's symptoms have markedly improved after treatment, and as a result, I will discharge patient. ED course: VSS. Nausea improved and vomiting resolved. Will discharge to home for continued monitoring. 10/29 21: Order name: CBC with Diff; Complete Time: 00:08 cp 10/30 00:08 Interpretation: Reviewed. cp 10/29 21: Order name: CMP; Complete Time: 00:08 cp 10/30 00:08 Interpretation: Normal except: K 3.4; AST < 10. cp 10/29 21:01 Order name: Lipase; Complete Time: 00:08 cp 10/29 21:01 Order name: Test, Urine; Complete Time: 00:08 cp 10/29 21:01 Order name: Urinalysis w/ reflexes; Complete Time: 00:08 cp 10/29 21:01 Order name: HCG-Quantitative; Complete Time: 00:08 cp 10/29 21:01 Order name: Rh Type cp 10/29 22:13 Order name: Rh Typing; Complete Time: 00:08 EDPR 10/29 22:54 Order name: Urine Culture [facility] 10/29 22:29 Order name: US Transvaginal Ob cp 10/29 21:01 Order name: IV Saline Lock; Complete Time: 22:14 cp 10/29 21:01 Order name: Labs collected and sent; Complete Time: 22:14 cp Administered Medications: 10/29 22:13 Drug: Famotidine IVP 20 mg IVP once; dilute with 10 mL 0.9% NaCl; give over 2 minutes kj2 Route: IVP; Site: right antecubital; 10/30 00:08 Follow up: Response: No adverse reaction 2 10/29 22:13 Drug: metoCLOPramide IVP 10 mg IVP once; over 1 to 2 minutes Route: IVP; Site: right kj2 antecubital; 10/30 00:08 Follow up: Response: No adverse reaction 2 10/29 22:13 Drug: diphenhydrAMINE IVP 25 mg IVP once Route: IVP; Site: right antecubital; kj2 10/30 00:08 Follow up: Response: No adverse reaction kj2 10/29 22:14 Drug: NS 0.9% IV 1000 ml IV at 1 bolus Per protocol; to be given as a bolus over 60 kj2 minutes Route: IV; Rate: 1 bolus; Site: right antecubital; 10/30 00:09 Follow up: IV Status: Completed infusion; IV Intake: 1000ml kj2 00:32 Drug: Potassium PO Effervescent Tablet 25 mEq PO once; dissolve in 4 ounces of water or lg3 juice Route: PO; 00:32 Follow up: Response: No adverse reaction lg3 Disposition Summary: 10/30/24 00:12 Discharge Ordered Notes: Location: Home cp Problem: new cp Symptoms: have improved cp Condition: Stable cp Diagnosis - Other specified related conditions, first trimester cp - Nausea with vomiting, unspecified cp Followup: cp - With: Private Physician - When: 7 - 10 days - Reason: Recheck today's complaints Discharge Instructions: - Discharge Summary Sheet cp - Abdominal Pain During cp - Nausea and Vomiting, Adult cp - First Trimester of cp Forms: - Medication Reconciliation Form cp - Antibiotic Education cp - Prescription Opioid Use cp - Patient Portal Instructions cp - Leadership Thank You Letter cp Prescriptions: - Reglan 10 mg Oral Tablet - take 1 tablet ORAL route every 6 hours take 30 minutes before meals and at cp bedtime; 20 tablet; Refills: 0, Product Selection Permitted Addendum: 11/01/2024 20:09 Co-signature as Attending Physician, Wisam Ortega MD I agree with the assessment s p4 and plan of care. I reviewed the patient's care provided by the Advanced Practice Provider and agree with the diagnosis and treatment plan. Signatures: Dispatcher [employer] EDMS Alan Mejia PA PA cp Twyla Lopez RN RN lg3 Wisam Ortega MD MD sp4 Arcelia Syed RN RN kj2
--- NOTE | 2024-10-30 00:13 | ER ---
Nurse's Notes [facility] Name: Miranda Sanders Age: 29 yrs Sex: Female : 1995 Arrival Date: 10/29/2024 Time: 20:09 Bed 17 Private MD: Diagnosis: Other specified related conditions, first trimester;Nausea with vomiting, unspecified Presentation: 10/29 20:30 Chief complaint: Patient states: im 6 weeks , vomiting this morning, headache, lg3 dizzy. on ABX for UTI X4 days. Coronavirus screen: At this time, unable to obtain information related to travel outside the [place] Ebola Screen: No symptoms or risks identified at this time. Initial Sepsis Screen: Does the patient meet any 2 criteria? No. Patient's initial sepsis screen is negative. Does the patient have a suspected source of infection? No. Patient's initial sepsis screen is negative. Risk Assessment: Do you want to hurt yourself or someone else? Patient reports no desire to harm self or others. Onset of symptoms was October 29, 2024. 20:30 Method Of Arrival: Ambulatory lg3 20:30 Acuity: FIDELIA 3 lg3 Triage Assessment: 20:32 General: Appears in no apparent distress. comfortable, Behavior is calm, cooperative. lg3 Pain: Complains of pain in head. EENT: No deficits noted. No signs and/or symptoms were reported regarding the EENT system. Neuro: No deficits noted. Gloria Agitation-Sedation Scale (RASS): 0 - Alert and Calm Level of Consciousness is awake, alert, obeys commands, Oriented to person, place, time, situation, Reports dizziness, headache weakness. Cardiovascular: No deficits noted. Denies chest pain, shortness of breath, Capillary refill < 3 seconds Clubbing of nail beds is absent JVD is absent Patient's skin is warm and dry. Respiratory: No deficits noted. Airway is patent Respiratory effort is even, unlabored, Respiratory pattern is regular, symmetrical. GI: Abdomen is round non-distended, Reports nausea, vomiting. : Reports urinary frequency. Derm: No deficits noted. No signs and/or symptoms reported regarding the dermatologic system. Skin is intact, is healthy with good turgor, Skin is dry, Skin is normal, Skin temperature is warm. Musculoskeletal: No deficits noted. Circulation, motion, and sensation intact. Range of motion: intact in all extremities. 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 - Infectious Disease History:: Denies. - Social history:: Smoking status: Reported history of juuling and/or vaping. Patient/guardian denies using alcohol, street drugs, the patient reports quitting approximately 2 years ago. Screenin:30 [facility] ED Fall Risk Assessment (Adult) History of falling in the last 3 months, lg3 including since admission No falls in past 3 months (0 pts) Confusion or Disorientation No (0 pts) Intoxicated or Sedated No (0 pts) Impaired Gait No (0 pts) Mobility Assist Device Used No (0 pt) Altered Elimination No (0 pt) Score/Fall Risk Level 0 - 2 = Low Risk Oriented to surroundings, Maintained a safe environment, Educated pt \T\ family on fall prevention, incl call for assistance when getting out of bed, Assessed \T\ reinforced patient's understanding of fall precautions. Abuse screen: Denies threats or abuse. Denies injuries from another. Nutritional screening: No deficits noted. Tuberculosis screening: No symptoms or risk factors identified. Assessment: 22:54 Reassessment: Patient appears in no apparent distress at this time. No changes from vc1 previously documented assessment. Patient and/or family updated on plan of care and expected duration. Pain level reassessed. Patient is alert, oriented x 3, equal unlabored respirations, skin warm/dry/pink. 23:29 Reassessment: Patient appears in no apparent distress at this time. Patient and/or kj2 family updated on plan of care and expected duration. Pain level reassessed. Patient is alert, oriented x 3, equal unlabored respirations, skin warm/dry/pink. 10/30 00:32 Reassessment: Patient appears in no apparent distress at this time. No changes from lg3 previously documented assessment. Patient and/or family updated on plan of care and expected duration. Pain level reassessed. Patient is alert, oriented x 3, equal unlabored respirations, skin warm/dry/pink. Patient states feeling better. Patient states symptoms have improved. Vital Signs: 10/29 20:30 BP 115 / 76; Pulse 65; Resp 16 S; Temp 98.8(O); Pulse Ox 100% on R/A; Weight 52.62 kg lg3 (R); Height 5 ft. 2 in. (R); 22:30 BP 115 / 69; Pulse 78; Resp 16; Pulse Ox 100% ; vc1 23:29 BP 96 / 72; Pulse 70; Resp 18; Pulse Ox 100% on R/A; kj2 10/30 00:32 BP 104 / 77; Pulse 68; Resp 17 S; Pulse Ox 100% on R/A; lg3 10/29 20:30 Body Mass Index 21.22 (52.62 kg, 157.48 cm) lg3 ED Course: 10/29 20:28 Patient arrived in ED. lg3 20:30 Patient has correct armband on for positive identification. Placed in gown. Bed in low lg3 position. Call light in reach. Side rails up X 1. Client placed on continuous cardiac and pulse oximetry monitoring. NIBP monitoring applied. Door closed. Noise minimized. Warm blanket given. Pillow given. Family accompanied patient. 20:30 Inserted saline lock: 20 gauge in right antecubital area, using aseptic technique. lg3 Blood collected. Flushed with 10 mL NS. 20:32 Triage completed. lg3 20:32 Arm band placed on right wrist. lg3 20:45 Alan Mejia PA is [facility]. cp 20:45 Wisam Ortega MD is Attending Physician. cp 21:02 Arcelia Syed RN is Primary Nurse. kj2 22:13 Rh Type Sent. kj2 10/30 00:09 Transvaginal Ob In Process Unspecified. EDMS 00:34 No provider procedures requiring assistance completed. IV discontinued, intact, lg3 bleeding controlled, No redness/swelling at site. Pressure dressing applied. Administered Medications: 10/29 22:13 Drug: Famotidine IVP 20 mg IVP once; dilute with 10 mL 0.9% NaCl; give over 2 minutes kj2 Route: IVP; Site: right antecubital; 10/30 00:08 Follow up: Response: No adverse reaction kj2 10/29 22:13 Drug: metoCLOPramide IVP 10 mg IVP once; over 1 to 2 minutes Route: IVP; Site: right kj2 antecubital; 10/30 00:08 Follow up: Response: No adverse reaction kj2 10/29 22:13 Drug: diphenhydrAMINE IVP 25 mg IVP once Route: IVP; Site: right antecubital; kj2 10/30 00:08 Follow up: Response: No adverse reaction kj2 10/29 22:14 Drug: NS 0.9% IV 1000 ml IV at 1 bolus Per protocol; to be given as a bolus over 60 kj2 minutes Route: IV; Rate: 1 bolus; Site: right antecubital; 10/30 00:09 Follow up: IV Status: Completed infusion; IV Intake: 1000ml kj2 00:32 Drug: Potassium PO Effervescent Tablet 25 mEq PO once; dissolve in 4 ounces of water or lg3 juice Route: PO; 00:32 Follow up: Response: No adverse reaction lg3 Medication: 00:35 VIS not applicable for this client. lg3 Intake: 00:09 IV: 1000ml; Total: 1000ml. kj2 Outcome: 00:12 Discharge ordered by MD. cp 00:34 Discharged to home ambulatory, with significant other, lg3 00:34 Condition: stable 00:34 Discharge instructions given to patient, Instructed on discharge instructions, follow up and referral plans. medication usage, Demonstrated understanding of instructions, follow-up care, medications, Prescriptions given X 1, 00:35 Patient left the ED. lg3 Signatures: Dispatcher [employer] EDMS Alan Mejia PA PA cp Able, Lacie RN RN lg3 Lizz Davis RN RN vc1 Arcelia Syed, RN RN kj2
[2024-10-30] MEDS ORDERED: POTASSIUM 25 MEQ EFFERV TAB ONE (00:16)
[2024-10-30 01:01] VITALS: TEMP 98.8; O2SAT 100
[2024-10-30 01:04] VITALS: BP 104/77
--- NOTE | 2024-10-30 01:40 | RAD REPORT ---
EXAM: US , Transvaginal CLINICAL HISTORY: The patient is 29 years old and is Female; NAUSEA/VOMITING TECHNIQUE: Real-time transvaginal obstetrical ultrasound of the maternal pelvis and a first trimester pregnanc y with image documentation. Transvaginal imaging was used for better evaluation of the fetus and adnexa. COMPARISON: No relevant prior studies available. FINDINGS: GESTATION: A single intrauterine gestational sac and yolk sac are present. A pole with a cr own-rump length of 0.3 cm correlating with 5 weeks 6 days is present. heart tones are not yet detected. PLACENTA/AMNIOTIC FLUID: Cannot be adequately evaluated due to the early gestational age. UTERUS/CERVIX: Unremarkable. No myometrial mass. OVARIES: A large right ovarian cyst is present. The right ovary measures 4.5 x 2.7 x 1.9 cm. The left ovary measures 3.8 x 2.1 x 2.0 cm. No mass. FREE FLUID: No free fluid. IMPRESSION: Single IUP at 5 weeks 6 days by CRL. heart tones are not detected. Findings likely related to the very early intrauterine gestation. Recommend close continued follow-up with serial hCG and ultrasound. Electronically signed by: Shayy Burgess MD 10/30/2024 01:32 AM CDT Due to temporary technical issues with the PACS/[employer] reporting system, reports are being sign ed by the in-house radiologist without review as a courtesy to ensure prompt reporting the interpreting rad iologist is fully responsible for the content of the report. Transcribed Date/Time: 10/30/2024 1:40 AM
== END 2024-10-30 00:35 | disposition home or self-care (01) ==
LOC: ER 20:09
DX: O21.9 Vomiting of pregnancy, unspecified (principal); Z3A.01 Less than 8 weeks gestation of pregnancy
CPT/HCPCS: 96361; 87088; 85025; 87086; 36415; 81025; 86901; 84702; 81003; 83690; 80053; 76817; 96375; 96374; 99284; J2765; J1200; J7030